=== PATIENT | male | born 1960 | race African-American/Black ===

== ENCOUNTER 2017-04-02 08:50 | Emergency (ER) | payer SELFPAY ==
[2017-04-02] MEDS ORDERED: Morphine 4 MG/ML VIAL ONE (09:15)
[2017-04-02] MEDS ORDERED: Ondansetron HCl/PF 4 MG/2 ML Vial ONE (09:15)
--- NOTE | 2017-04-02 09:45 | RAD ---
LUMBAR SPINE SERIES 3 VIEWS: HISTORY: Back pain. FINDINGS: Vertebral bodies are normal in height. Degenerative osteophytes are present. There is mild disk eric rowing at L4-5. Degenerative facet changes of the lower lumbar spine are seen. No acute injury. Th ere are vascular calcifications noted. IMPRESSION: Degenerative changes of the spine with some disk narrowing at L1-2 and L4-5. No definite acute proce ss. POS: [facility]
[2017-04-02 10:02] LABS: #Lymphocytes 2.4 thou/uL (1.20-3.40); #Monocytes 0.8 thou/uL (0.11-0.59); #Neutrophils 3.7 thou/uL (1.40-6.50); %Basophils 0.4 % (0.0-1.0); %Eosinophils 0.7 % (0.0-10.0); %Monocytes 11.7 % (0.0-10.0); Mean Platelet Volume 6.4 fL (7.4-10.4)
[2017-04-02 10:12] LABS: Bilirubin Negative (Negative); Blood, Urine Negative (Negative); Glucose, Urine (Dipstick) Negative (Negative); Ketone, Urine Negative (Negative); Nitrite Negative (Negative); Protein, Urine (Dipstick) 30 mg/dL (Neg-Trace); Urobilinogen 0.2 mg/dL (0.2-1.0)
[2017-04-02 10:15] LABS: Bacteria/HPF None Seen HPF (None Seen); Hyaline Casts/LPF 0-3 HYALINE CAST LPF (0-3 Hyaline); RBC/HPF 0-3 HPF (0-3); Squamous Epithelial None Seen HPF (0-3); WBC/HPF None Seen HPF (0-3)
[2017-04-02 10:20] LABS: ALT (SGPT) 88 U/L (8-55); AST (SGOT) 59 U/L (5-34); Alkaline Phosphatase 127 U/L (40-150); Anion Gap 12 mmol/L (10-20); BUN (Urea Nitrogen) 18 mg/dL (8.4-25.7); Bilirubin, Total 0.5 mg/dL (0.2-1.2); Calc. Creatinine Clearance 0 mL/min (70-130); Calcium 9.6 mg/dL (7.8-10.44); Carbon Dioxide 25 mmol/L (22-29); Chloride 101 mmol/L (98-107); Estimated GFR-MDRD 60; Globulin 4.4 g/dL (2.4-3.5); Protein, Total 8.2 g/dL (6.0-8.3)
== END 2017-04-02 11:00 | disposition home or self-care (01) ==
LOC: ERS 08:50
DX: M54.5 Low back pain (principal); I10 Essential (primary) hypertension; F17.210 Nicotine dependence, cigarettes, uncomplicated; Z79.899 Other long term (current) drug therapy
CPT/HCPCS: 72100; 80053; 81003; 81015; 85025; 96374; 96375; 99406; J2270; J2405

== ENCOUNTER 2017-05-07 10:42 | Emergency (ER) | payer MEDICAID, SELFPAY | END 2017-05-07 12:35 | disposition home or self-care (01) | LOC: ERS 10:42 | DX: R10.30 Lower abdominal pain, unspecified (principal); G89.29 Other chronic pain; I10 Essential (primary) hypertension; M19.90 Unspecified osteoarthritis, unspecified site; F17.210 Nicotine dependence, cigarettes, uncomplicated | CPT/HCPCS: 99283 ==

== ENCOUNTER 2017-06-25 14:23 | Inpatient (IN) | payer OTHER, SELFPAY ==
[~2017-06-25 14:23] MED LIST: ISOVUE-370 76%-LOCM 1 ML ONE
[2017-06-25] MEDS ORDERED: niCARdipine 20MG In NaCl 20 MG/200 ML BAG ONE (14:42)
[2017-06-25] MEDS ORDERED: Labetalol HCl 100 MG/20 ML VIAL ONE (15:01)
[2017-06-25 15:14] LABS: #Eosinphils 0.1 thou/uL (0.0-0.7); #Lymphocytes 1.6 thou/uL (1.20-3.40); #Monocytes 0.5 thou/uL (0.11-0.59); #Neutrophils 7.2 thou/uL (1.40-6.50); %Basophils 0.2 % (0.0-1.0); %Eosinophils 0.6 % (0.0-10.0); %Lymphocytes 17.2 % (21.0-51.0); %Monocytes 5.5 % (0.0-10.0); %Neutrophils 76.5 % (42.0-75.0); Hemoglobin 11.7 g/dL (14.0-18.0); Mean Corpuscular HGB CONC 33.8 g/dL (32.0-36.0); Mean Corpuscular Hemoglobin 33.4 pg (27.0-31.0); Mean Corpuscular Volume 98.9 fl (80.0-94.0); Mean Platelet Volume 6.3 fL (7.4-10.4); Platelet Count 529 thou/uL (130-400); RBC Distribution Width 12.1 % (11.5-14.5); Red Blood Cell (RBC) Count 3.49 mill/uL (4.70-6.10); White Blood Cell (WBC) Count 9.4 thou/uL (4.8-10.8)
[2017-06-25 15:21] LABS: PTT 33.8 SEC (22.9-36.1); Prothrombin Time 13.2 SEC (12.0-14.7)
[2017-06-25 15:34] LABS: ALT (SGPT) 36 U/L (8-55); AST (SGOT) 32 U/L (5-34); Albumin 3.5 g/dL (3.5-5.0); Alkaline Phosphatase 151 U/L (40-150); Anion Gap 11 mmol/L (10-20); BUN (Urea Nitrogen) 20 mg/dL (8.4-25.7); Bilirubin, Total 0.3 mg/dL (0.2-1.2); CK (CPK) 69 U/L (30-200); Calc. Creatinine Clearance 0 mL/min (70-130); Calcium 9.2 mg/dL (7.8-10.44); Carbon Dioxide 29 mmol/L (22-29); Chloride 98 mmol/L (98-107); Estimated GFR-MDRD 69; Globulin 3.9 g/dL (2.4-3.5); Glucose 108 mg/dL (70-105); Potassium 4.1 mmol/L (3.5-5.1); Protein, Total 7.4 g/dL (6.0-8.3); Sodium 134 mmol/L (136-145)
[2017-06-25 15:39] LABS: Troponin I 0.045 ng/mL (< 0.028)
--- NOTE | 2017-06-25 15:41 | CT ---
CT BRAIN WITHOUT CONTRAST: Date: 06/25/17 HISTORY: Left-sided weakness. FINDINGS: There are changes of cortical atrophy and chronic small vessel ischemic disease. The ventricular size is appropriate and the basilar cisterns are patent. No evidence of infarct, hemorrhage, midline shif t, or abnormal extra-axial fluid collections are seen. The bony calvarium is intact. The visualized p aranasal sinuses are well aerated. There is destructive change in the right mastoid extending into th e right occipital bone. IMPRESSION: 1. No CT evidence of acute intracranial process. 2. Destructive changes in the right petrous bone. This should be evaluated with a contrast enhanced MRI. Discussed over the telephone with ER physician, Dr. Cat, at 1435 hours. CODE CR. POS: [facility]
[2017-06-25] MEDS ORDERED: hydrALAZINE 20 MG/ML VIAL ONE (15:58)
[2017-06-25] MEDS ORDERED: Calcium Carbonate 500 MG ChewTAB PO PRN (16:49)
[2017-06-25] MEDS ORDERED: Bisacodyl 5 MG TAB PO PRN (16:49)
[2017-06-25] MEDS ORDERED: Mag-Al 1200 mg/1200 mg/30 ML UDCUP PO PRN (16:49)
[2017-06-25] MEDS ORDERED: Senokot 8.6 MG TAB PO PRN (16:49)
[2017-06-25] MEDS ORDERED: Ondansetron HCl/PF 4 MG/2 ML Vial IVP PRN (16:49)
[2017-06-25] MEDS ORDERED: Labetalol HCl 100 MG/20 ML VIAL SLOW IVP PRN (16:53)
--- NOTE | 2017-06-25 16:53 | CT ---
CTA HEAD WITH IV CONTRAST AND 3D POSTPROCESSING CTA NECK WITH IV CONTRAST AND 3D POSTPROCESSING CT PERFUSION OF THE BRAIN: 06/25/17 HISTORY: Left sided weakness. FINDINGS: Vascular calcifications are present. There is good flow in the vertebrobasilar and carotid artery sys tems on either side. No aneurysm formation, major branch occlusion or significant stenosis is seen. CT perfusion images have a normal appearance. There is destructive change in the right petrous bone. Spiculated nodules are noted in the upper lung ac. These measure 14 mm on the right and 11 mm on the left. Smaller nonspiculated nodules are al so seen in the left upper lobe measuring up to 5 mm. There is sclerotic changes in the right scapula also suspicious for metastasis. IMPRESSION: 1. No significant abnormalities are seen on the CTA or CT perfusion. 2. Pulmonary nodules and destructive changes in the right petrous bone are suspicious for metast atic disease. Findings are discussed over the telephone with ER physician, Dr. Radha Cat at 3:14 p.m. The study is interpreted in consultation with Dr. Cariln Lopez (neuroradiologist) who concurs. POS: [facility]
[2017-06-25] MEDS ORDERED: HYDROcodone/Acetaminophen 5/325 mg Tablet PO PRN (16:57)
--- NOTE | 2017-06-25 18:17 | MRI ---
MRI OF BRAIN WITHOUT CONTRAST 06/25/17 Multiplanar and multisequential imaging of brain obtained. HISTORY: Stroke symptoms. Assess for infarct. Correlation made to CT head with angio performed earlier today. FINDINGS: Mild cortical volume loss. Ventricles have normal size and position. Mild to moderate chronic ischemi c white matter changes seen in both cerebral hemispheres. There is no evidence of restricted diffusion. No evidence of acute infarct. No evidence of parenchyma l mass or edema. No hemorrhage identified. There is a large mass involving the right petrous ridge which was described on CT as a destructive le matt. This mass has significant soft tissue component on MRI. It measures approximately 3.6 cm AP dim ension x 3 cm width. There is associated mucosal edema in the right mastoid air cells. The lack of hi gh T1 signal argues against cholesterol granuloma. Metastatic lesion would be suspected as noted on t he CT. The intracranial internal carotid arteries and proximal cerebral arteries show flow voids. Dural veno us sinuses are patent. IMPRESSION: 1. No evidence of acute infarct. 2. Mild to moderate chronic ischemic white matter change. 3. A large mass which is destructive in nature as noted on recent CT involving the right petrous bone. There is associated edema in the right mastoid air cells. Metastatic lesion is suspected. POS: [facility]
[2017-06-25 18:54] LABS: Troponin I 0.068 ng/mL (< 0.028)
--- NOTE | 2017-06-25 20:07 | HP ---
CHIEF COMPLAINT: Not feeling well. HISTORY OF PRESENT ILLNESS: This is a 57-year-old gentleman with a past medical history significant for hypertension, who presents to the hospital due to not feeling well earlier today. The patient wa s in his normal state this morning. When around noon or so, he states that he was not feeling well. Around noon today, he states that he was feeling well. Therefore, he called his son to tell him lv t. Due to him not feeling well overall, EMS was called and patient was brought here for further eval uation and management. When he states that he was not feeling well, he states that he felt like he w as having some weakness of his extremities and did not know exactly why he was having this. Along wi th this he is having associated headache: When brought to the ER, he was found to have systolic bloo d pressures greater than 220. Code stroke was called as the patient was found to have facial droop w ith left upper and lower extremity weakness with slurred speech. The patient was given hydralazine a s well as labetalol in the ER, which brought his pressures down into the 170s to 180s. Also while in the ER, the patient's symptoms apparently had significantly improved to the point that had almost re solved. Only symptoms he was having per the ER doctor was facial droop and still some slurred speech , but did not exhibit any weakness. Therefore, no TPA was given in the ER. Currently, the patient s tates that he is feeling better. He states that his headache has improved. Denies having any weakne ss. Also denies any palpitations, chest pain, shortness of breath, nausea or vomiting. He states th at this is the first time he has ever had symptoms like this. PAST MEDICAL HISTORY: As stated, hypertension. SURGICAL HISTORY: The patient has no history. SOCIAL HISTORY: The patient states that he drinks beer daily, approximately 4-5 drinks beers a day a nd has smoked for the past 30+ years, half a pack per day. Denies any recreational drug use. FAMILY HISTORY: Significant for hypertension as well as cardiovascular disease. ALLERGIES: No known drug allergies. REVIEW OF SYSTEMS: A 14-point review of systems was negative other than what was mentioned in the HP I. PHYSICAL EXAMINATION: VITAL SIGNS: Blood pressure is 178/114, pulse is 104, respiratory rate was 18, temperature was 98.7. The patient is satting 99% oxygen on room air. GENERAL: The patient is in no apparent distress, resting comfortably in the bed. Alert, awake, and oriented x3. HEENT: Head: Normocephalic, atraumatic. Eyes: Pupils are round and reactive to light. Extraocula r muscles were intact. Conjunctivae was pink. Sclerae was nonicteric. Mouth: Oral mucosa is pink and moist. No erythematous was noted. NECK: Soft and supple. No JVD, carotid bruits or lymphadenopathy. CARDIOVASCULAR: Slightly tachycardic, regular rhythm. S1, S2 sounds are heard. No S3, no S4. RESPIRATORY: Clear lungs bilaterally. No added sounds. ABDOMEN: Bowel sounds, soft, nontender, nondistended. EXTREMITIES: Pulses were 2+ both dorsalis and radial pulse. No pitting edema could be appreciated. NEUROLOGIC: Cranial nerves II-XII are grossly intact. Could appreciate some slurred speech as well as right-sided facial droop. Cannot appreciate any weakness as his motor function appeared to be int act, 5/5 both upper and lower extremities with intact sensation and reflexes were 2/4. LABORATORY DATA: Sodium was 134, potassium 4.1, chloride is 98, BUN was 20, creatinine was 1.29, glu cose was 108. WBC was 9.4, hemoglobin 11.7, hematocrit was 34.5, platelet count was 529. CT of the head did not show any acute intracranial process and CTA of the head and neck showed no significant a bnormalities. ASSESSMENT: 1. Stroke-like symptoms possibly secondary to hypertensive emergency as the patient has systolic blo od pressure greater than 220. 2. Uncontrolled hypertension. 3. Excessive alcohol use. PLAN: We will admit the patient to the stroke unit. CTA of the head and neck has already been done, which was negative. We will order an MRI. We will start the patient on aspirin as well as Lipitor. We will check lipid profile. Check an echocardiogram. We will add hydralazine and labetalol, p.r. n. blood pressure medications, but we will allow for permissive hypertension for at least for the nex t 24 hours. We will have physical therapy as well as Speech Therapy to see the patient. We will cou nsel the patient on alcohol cessation. Pending finals, we will detect management. There are also me dications for pain management control if required at any time. We will start the patient on Lovenox [address] scan was negative.
[2017-06-25] MEDS: Atorvastatin Calcium 40 MG TAB PO SCH (20:13)
[2017-06-25 22:16] LABS: Troponin I 0.047 ng/mL (< 0.028)
[2017-06-26] MEDS: Acetaminophen 325 MG TAB PO PRN ×2 (03:54→19:59)
[2017-06-26 05:18] LABS: Anion Gap 14 mmol/L (10-20); BUN (Urea Nitrogen) 19 mg/dL (8.4-25.7); Calc. Creatinine Clearance 51 mL/min (70-130); Calcium 8.6 mg/dL (7.8-10.44); Carbon Dioxide 23 mmol/L (22-29); Cardiac Risk 3.1 (Less than 4.5); Chloride 101 mmol/L (98-107); Cholesterol 117 mg/dl (< 200 Desired); Estimated GFR-MDRD 67; Glucose 138 mg/dL (70-105); HDL Cholesterol 38 mg/dL (>60 Neg Risk); LDL Cholesterol, Calculated 64 mg/dL; Potassium 3.7 mmol/L (3.5-5.1); Sodium 134 mmol/L (136-145); Triglycerides 74 mg/dL (Less than 150)
[2017-06-26 05:31] LABS: Band 11 % (5-11); Lymphocytes 14 % (21-51); MDiff Complete? YES; Mean Corpuscular HGB CONC 33.6 g/dL (32.0-36.0); Mean Corpuscular Hemoglobin 32.9 pg (27.0-31.0); Mean Platelet Volume 6.5 fL (7.4-10.4); Monocytes 6 % (0-10); Neutrophil 69 % (42-75); PLT Morphology Comment Appears Increased; Platelet Count 484 thou/uL (130-400); RBC Distribution Width 12.2 % (11.5-14.5); Red Blood Cell (RBC) Count 3.35 mill/uL (4.70-6.10); White Blood Cell (WBC) Count 14.3 thou/uL (4.8-10.8)
[2017-06-26] MEDS ORDERED: ISOVUE-370 76%-LOCM 1 ML ONE (07:36)
[2017-06-26] MEDS: Enoxaparin Sodium 40 MG/0.4 ML SYRINGE SC SCH (08:58)
[2017-06-26] MEDS ORDERED: Aspirin 325 mg Enteric Coated Tablet PO SCH (09:00)
[2017-06-26] MEDS: Vancomycin HCl 1 GM in Premix Bag 1 BAG IVPB SCH ×2 (09:02→20:00)
--- NOTE | 2017-06-26 10:12 | PRG ---
DATE OF SERVICE: 06/26/2017 NEUROSURGERY PROGRESS NOTE SUBJECTIVE: I saw Mr. Self in his hospital room this morning. I reviewed imaging, history, and agr ee with the notes of Robin Claudio PA-C. Mr. Tyson Self came to our hospital yesterday with malaise and not feeling well. He complained of r ight facial weakness and some hemibody weakness. Imaging did not show any restricted diffusion in th e brain, but there was a lesion in the right mastoid portion of the temporal bone. Mr. Self says he continues to feel bad, he has a nonproductive cough and he is a smoker. When I examined Mr. Self, he has facial nerve weakness on the right side and it is House-Brackmann 4 -5/6. He has decreased hearing in the right ear, other lower cranial nerves are working. Mr. Self does not have pronator drift. He has preservation of rapid alternating motions of the fingers and to es. I did not get him out of bed, because he has been having a cardiac echo at the time of this eval uation. I reviewed imaging of the brain. There is a lesion that is destructive in the mastoid process of the temporal bone, it is outside the dura and it extends to the posterior infratemporal space and subocc ipital space. It does not extend intradurally nor is it compressive of the cerebellum. My plan for Mr. Self is that otolaryngologists visit with him. His right facial weakness is from th e mastoid and temporal bone destructive lesion. This could represent a metastasis from a lung cancer due to the smoking (there are lesions in the lung), could be a primary skull based tumor, could be i nfection. If Otolaryngology would like Neurosurgery involved in the case, we could be available to i nspect the dura, but mastoidectomy as a part of their area of expertise. In the meantime, I think he needs tumor staging with a CT chest, abdomen and pelvis and he needs the contrast MR image of the br ain with posterior fossa sequences. Neurosurgery team will be available for reconsultation should ou r involvement in the case be necessary.
--- NOTE | 2017-06-26 10:53 | PDOC.PN ---
- Subjective Encounter Start Date: 06/26/17 Encounter Start Time: 08:15 Subjective: no new complaints, has right facial nerve palsy x1 week -: left weakness is resolved per patient -: no discharge from ears, or hemoptysis, lost 20lbs in 2 months - Objective MAR Reviewed: Yes Vital Signs & Weight: Vital Signs (12 hours) Temp Pulse Resp BP Pulse Ox 06/26/17 08:00 100.1 F H 116 H 18 92 L 06/26/17 07:59 100.1 F H 116 H 18 167/89 H 92 L 06/26/17 03:58 102.2 F H 94 18 176/94 H 95 06/26/17 00:55 99.2 F 111 H 16 134/99 H 92 L Weight Weight 129 lb Result Diagrams: 06/26/17 04:25 06/26/17 04:25 Radiology Reviewed by me: Yes Phys Exam - Physical Examination HEENT: PERRLA, moist MMs left ptosis+, no mastoid tenderness Neck: no nodes, no JVD Respiratory: no wheezing, no rales rhonchi+ Cardiovascular: RRR, no significant murmur Gastrointestinal: soft, non-tender, positive bowel sounds Musculoskeletal: no edema, pulses present Neurological: moves all 4 limbs right 7th nr palsy, pt is left handed Psychiatric: normal affect, A&O x 3 Dx/Plan (1) metastases Status: Acute Comment: multiple to L.spine, adrenal, likely lungs and brain. Unknown prim ?lungs (2) Fever Code(s): R50.9 - FEVER, UNSPECIFIED Status: Acute Comment: likely due to cancer, cultures (3) COPD (chronic obstructive pulmonary disease) Status: Chronic Qualifiers: COPD type: chronic bronchitis (4) Tobacco abuse Code(s): Z72.0 - TOBACCO USE Status: Chronic (5) Alcohol abuse Code(s): F10.10 - ALCOHOL ABUSE, UNCOMPLICATED Status: Chronic (6) Weight loss Status: Acute (7) HTN (hypertension) Code(s): I10 - ESSENTIAL (PRIMARY) HYPERTENSION Status: Chronic Qualifiers: Hypertension type: essential hypertension Qualified Code(s): I10 - Essential (primary) hypertension (8) Sepsis Code(s): A41.9 - SEPSIS, UNSPECIFIED ORGANISM Status: Suspected - Plan cultures, empiric vanc and zosyn for now -: d/w Timoteo Rhoades Salazar. -: Unclear primary, likely lungs in view of areas of mets? -: D/w radiologist, will check with IR in am to see if Bx is feasib -: Poor prognosis in view of mets * . No aspirin, keep him npo if any procedures are planned. Gentle IV hydration Review of Systems - Medications/Allergies Allergies/Adverse Reactions: Allergies Allergy/AdvReac Type Severity Reaction Status Date / Time No Known Allergies Allergy Verified 06/25/17 19:45 Medications: Current Medications Acetaminophen (Tylenol) 650 mg PO Q6H PRN PRN Reason: Headache/Fever or Pain Last Admin: 06/26/17 03:54 Dose: 650 mg Hydrocodone Bitart/Acetaminophen ([place] 5/325) 1 tab PO Q4H PRN PRN Reason: Moderate Pain (4-6) Last Admin: 06/25/17 20:27 Dose: 1 tab Al Hydroxide/Mg Hydroxide (Maalox) 30 ml PO Q6H PRN PRN Reason: Heartburn or Indigestion Atorvastatin Calcium (Lipitor) 40 mg PO HS [facility] Last Admin: 06/25/17 20:13 Dose: 40 mg Bisacodyl (Dulcolax) 10 mg PO DAILYPRN PRN PRN Reason: Constipation Calcium Carbonate (Tums) 1,000 mg PO Q4H PRN PRN Reason: Heartburn or Indigestion Enoxaparin Sodium (Lovenox) 40 mg SC 0900 [facility] Last Admin: 06/26/17 08:58 Dose: Not Given Hydralazine HCl (Apresoline) 20 mg SLOW IVP Q2H PRN PRN Reason: elevated BP Piperacillin Sod/Tazobactam (Sod 4.5 gm/ Sodium Chloride) 100 mls @ 200 mls/hr IVPB Q6HR [facility] Vancomycin HCl 1 gm/ Device 200 mls @ 200 mls/hr IVPB Q12HR [facility] Last Admin: 06/26/17 09:02 Dose: 200 mls Sodium Chloride (Normal Saline 0.9%) 1,000 mls @ 100 mls/hr IV .Q10H [facility] Labetalol HCl (Normodyne) 20 mg SLOW IVP Q4H PRN PRN Reason: elevated bp Ondansetron HCl (Zofran) 4 mg IVP Q6H PRN PRN Reason: Nausea/Vomiting Senna (Senokot) 2 tab PO HSPRN PRN PRN Reason: Constipation Sodium Chloride (Flush - Normal Saline) 10 ml IVF Q12HR [facility] Last Admin: 06/26/17 08:59 Dose: Not Given Sodium Chloride (Flush - Normal Saline) 10 ml IVF PRN PRN PRN Reason: Saline Flush
[2017-06-26] MEDS: Sodium Chloride 0.9% 1,000 ML IV SCH ×2 (11:11→20:00)
[2017-06-26] MEDS ORDERED: Acetaminophen 1,000 MG in Premix Bag 1 BAG IVPB SCH (11:15)
[2017-06-26] MEDS ORDERED: Morphine 5 MG/ML SYRINGE SLOW IVP PRN (11:20)
--- NOTE | 2017-06-26 11:37 | CT ---
CT CHEST WITH IV CONTRAST CT ABDOMEN WITH IV CONTRAST CT PELVIS WITH IV CONTRAST: Date: 06/26/17 HISTORY: Right temporal bone mass and pulmonary nodules on exams from yesterday. Exam requested to evaluate fo r primary. FINDINGS: No mediastinal, hilar, or axillary mass or lymphadenopathy is seen. Mediastinal and left hilar lymph nodes measure up to 8.0 mm. No pleural or pericardial effusions are seen. There are patchy infiltrates in the posterior aspect of the lower lobes bilaterally. A couple of spiculated nodules are seen in the upper lobes measuring 15 .0 mm on the right and 1.0 cm on the left. Small, 5.0 mm, nodule is also seen in the left upper lobe. The liver, spleen, pancreas, and left kidney are normal. There is a tiny nonobstructing right renal c alculus. No calcified gallstones are seen. Bilateral adrenal nodules are present measuring 1.5 cm on the right and 2.0 cm on the left. No free air, free fluid, or lymphadenopathy is seen in the abdomen or pelvis. Vascular calcifications are present without evidence of aneurysmal dilatation of the abdominal aorta. Absence of oral contrast reduces the sensitivity of exam. There is prominence of the wall of the stom ach which can be due to incomplete distention or wall thickening/mass. Endoscopic evaluation would be helpful. There is sclerosis in the right scapula. There is a lytic lesion in the left scapula with associated fracture involving the inferior aspect of the body (likely pathologic fracture). There are lytic lesions involving the L1, L2, and L3 vertebra, sacrum, and right iliac bone. There is an associated compression fracture/pathologic fracture at L2 level with soft tissue extension into t he intraspinal canal causing severe central canal stenosis. IMPRESSION: 1. Osseous, adrenal, and pulmonary metastasis. 2. Severe central canal stenosis at L2. 3. Nonobstructing right renal calculus. 4. Bilateral lung infiltrates. The possibility of infection should be considered. A course of antibi otics should be administered prior to evaluation with PET scan (if PET scanning is being considered). 5. Incomplete distension vs gastric wall thickening. Consider endoscopy. Discussed over the telephone with Dr. Clark at 1030 hours. CODE CR. POS: [facility]
--- NOTE | 2017-06-26 12:06 | CON ---
DATE OF SERVICE: 06/26/2017 CONSULTING PHYSICIAN: Sloane Clark M.D. REASON FOR CONSULTATION: Possibility of biopsying some small lung lesions. HISTORY OF PRESENT ILLNESS: The patient is a 57-year-old male who is able to give his own history wi [facility] limitations, also I have reviewed chart notes and I have discussed with Dr. Clark. He pr esented to the hospital yesterday stating he did not feel well. He has had a constant headache for a bout 3 weeks. He has had difficulty hearing on the right. It was initially felt he was having a str dianna. He was also found to be severely hypertensive. Further workup has demonstrated an abnormal MRI of the head with a 3.6 x 3 cm mass on the right petrous ridge in the temporal area. He also had muc osal edema in the right mastoid air cells. Further workup with a CT of the chest demonstrates a smal l pulmonary nodule in the left upper lobe and nondescript spiculated density in the right upper lobe, has very small left hilar lymph node, has a destructive lesion which looks to be an L-spine and has bilateral adrenal findings. The patient has no previous history of cancer that he knows of. He has had no hemoptysis. He has had significant weight loss. He denies any TB exposure. PAST MEDICAL HISTORY: Hypertension. PAST SURGICAL HISTORY: None. SOCIAL HISTORY: He has been a 4-5 beer per day drinker. He has smoked about half pack a day over e last 30 years. He formerly worked at the [employer] in [place] [facility]. Does not use any illicit drugs. He is currently disabled. FAMILY MEDICAL HISTORY: Remarkable for hypertension and cardiovascular disease. ALLERGIES: None. REVIEW OF SYSTEMS: Remarkable for weight loss, weakness, otherwise 12-point review of systems is neg ative. MEDICATIONS PRIOR TO ADMISSION: None. CURRENT INPATIENT MEDICATIONS: Acetaminophen, Maalox, Lipitor, Lovenox, Apresoline, Cope, morphine, Zofran, and vancomycin. PHYSICAL EXAMINATION: VITAL SIGNS: Temperature 102.7, pulse 118, respirations 20, O2 sat 93%, blood pressure 186/101. GENERAL: He is awake and alert and in no distress. HEENT: Pupils reactive. Sclerae are anicteric. Oropharynx clear. NECK: No JVD. LUNGS: He has no crackles, wheezing or rhonchi noted. CARDIOVASCULAR: S1, S2 regular, without murmur. ABDOMEN: Soft and nontender. EXTREMITIES: No clubbing, cyanosis, or edema. LABORATORY DATA: White blood cell count 14.3, hematocrit 32.9, platelet count 484. INR 1.0. Sodium 134, potassium 3.7, chloride 101, CO2 is 23, BUN 19, creatinine 1.3, glucose 138. I reviewed his CT of the chest personally. ASSESSMENT: 1. Right intracranial bone metastasis. 2. Lumbar spine metastasis. 3. Scattered pulmonary nodules - do not know if this is primary site of tumor or not. This nodules are very small and will be almost impossible to biopsy by CT needle and I do not think are amenable t o bronchoscopy. RECOMMENDATIONS: The most logical area to biopsy would be the L-spine in my opinion. This can be do ne by Interventional Radiology. If no other side is found, I would keep in mind lung findings could be caused by endocarditis and would advocate performing an echocardiogram. The fever is not explaina ble from a malignancy standpoint at this time.
[2017-06-26] MEDS: Piperacillin/Tazobactam 4.5 GM in Sodium Chloride 0.9% 100 ML IVPB SCH ×2 (12:31→17:28)
--- NOTE | 2017-06-26 12:36 | CON ---
DATE OF CONSULTATION: 06/26/2017 HISTORY OF PRESENT ILLNESS: Mr. Self is a 57-year-old male who presents with generalized weakness a nd fatigue and not feeling well. His past medical history is significant for hypertension, who prese nts to the hospital yesterday. He has an extensive family history of cancer and for the past month, he has been losing significant amount of weight up to 20 pounds without trying. He states he is havi ng some weakness in the extremities especially in the lower extremities. He has had associated heada lisa. When he was brought to the hospital, his systolic blood pressure was greater than 220. The pat priscilla was found to have left facial droop and left-sided weakness on the upper and lower extremities i n the ER, so a stroke code was called. The patient did not receive TPA in the hospital and hours lat er, left facial droop gradually resolved. Patient states he is currently feeling better, but he stil l has his headache. He denies any palpitations, chest pain, shortness of breath, nausea, vomiting. He has a CT of the brain that was completed upon admission that showed destructive changes in the rig ht petrous bone. This was later followed up by a brain MRI to evaluate further that showed a large m ass with destructive in nature noted on the recent CT involving the right petrous bone with associate d edema in the right mastoid cells, metastatic lesion is suspected. The patient is a current smoker. Neurosurgery was consulted for these findings on the MRI and CT scan of the large mass in the christina us region on the right. PAST MEDICAL HISTORY: Hypertension. PAST SURGICAL HISTORY: No history. SOCIAL HISTORY: Patient drinks beer daily, approximately 4-5 drink beers a day. He has smoked for t he past 30 years, half pack a day and denies any recreational drug use. FAMILY HISTORY: The patient is significant for hypertension as well cardiovascular disease and malig nancies. ALLERGIES: No known drug allergies. REVIEW OF SYSTEMS: A 14-point review of systems was completed, otherwise negative unless stated in t he above HPI. PHYSICAL EXAMINATION: VITAL SIGNS: Currently, temperature 102.7, pulse is 118, respirations of 20, O2 sats 93% on nasal ca nnula 2 liters and blood pressure is currently 186/101. CONSTITUTIONAL: The patient is alert and oriented x4. He is able to answer my questions appropriate ly, appears to be in no acute distress. HEENT: Normocephalic, atraumatic. Hearing intact. Moist mucous membranes. Trachea is midline. He has no tenderness over the right-sided mastoid region on palpation. NECK: Soft and supple, no JVD, no carotid bruits. CARDIOVASCULAR: The patient is slightly tachycardic, regular rate and rhythm, normal S1, S2 heart so unds. No distal cyanosis or clubbing noted. Intact pedal pulses bilaterally. RESPIRATORY: The patient has bilateral symmetric chest rise. Appears to have no shortness of breath . EXTREMITIES: The patient has +2 dorsal pedis and radial pulses. No pitting edema could be appreciat ed. NEUROLOGIC: Cranial nerves II through XII grossly intact. Speech is fluent. He answers my question s appropriately. He seems to have good strength in his upper extremities bilaterally and no focal mo tor or sensory deficits. In the lower extremities, intact to sensation and reflexes were 2/4. LABORATORY DATA: Shows white blood cell count of 14.3, hemoglobin 11, hematocrit is 32.9, platelet c ount is 484, % neutrophils bands are 11. On chemistry exam, his sodium is 134, creatinine is 1.33, g lucose is 138. His troponin 1 of 0.047. His coagulation studies are normal. ASSESSMENT: Status post stroke-like symptoms secondary to hypertensive emergency with systolic blood pressure greater than 220. 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 He has uncontrolled hypertension and excessive alcohol use. PLAN: From neurosurgical standpoint, need to consult an paintless dent repair technician to visit with him for his t emporal bone destructive lesion. CT of chest, abdomen, and pelvis is currently being completed and t his possibly could be a metastatic lesion from lung cancer from smoking. If otolaryngology would lik e Neurosurgery involved in the case, please feel free to reconsult us. CT chest, abdomen, and pelvis will be used for staging purposes.
--- NOTE | 2017-06-26 16:40 | ADD-PRG ---
ADDENDUM I have reviewed CT imaging of the chest, abdomen, and pelvis on Mr. Tyson Self. There are spiculate d lesions in the lung ac. There are lytic lesions at L1, L2, L3 and the sacrum. In the end, I believe most of the lesions in the body are likely to be a metastatic, I worry about colton ng cancer in this smoker. I will defer to ENT for management of the mastoid lesion.
[2017-06-26] MEDS: Metoprolol Tartrate 25 MG TAB PO SCH (19:58)
[2017-06-26] MEDS: Atorvastatin Calcium 40 MG TAB PO SCH (19:59)
--- NOTE | 2017-06-26 20:24 | CON ---
DATE OF CONSULTATION: 06/26/2017 REASON FOR CONSULTATION: Indeterminate troponins. HISTORY OF PRESENT ILLNESS: Mr. Self is a 57-year-old gentleman who came to the hospital with feeli ngs of "not feeling well." It was noted that he had some neurologic deficits and underwent evaluatio n and ultimately has been found to have what appears to be likely to be a malignancy and an MRI of th e right petrous region temporal area with probable malignancy in multiple other areas is outlined in the chart. I have been consulted because the troponin level is indeterminate. He has no chest pain or pressure. PAST MEDICAL HISTORY: 1. Hypertension, he was very hypertensive when he came. 2. No previous cardiac history. SOCIAL HISTORY: Four to five beers per day. Smoked about a half pack of cigarettes over the last 30 years. He has been losing weight. He is disabled. ALLERGIES: None. REVIEW OF SYSTEMS: Positive for weight loss, weakness, and otherwise negative. MEDICATIONS: None prior to admission. PHYSICAL EXAMINATION: GENERAL: He is a thin appearing gentleman. He did have a fever of 102.7 with a pulse 118, now his p ulse is just over 100, still sinus tachycardia. HEENT: Eyes, sclerae nonicteric. Mouth mucous membranes moist. NECK: Supple, no lymphadenopathy. LUNGS: Clear, no wheezing, rales or rhonchi. CARDIAC: Normal S1, normal S2, but he is tachycardic. No murmur, rub or gallop. ABDOMEN: Soft, nontender. EXTREMITIES: No clubbing or cyanosis. No edema. LABORATORY AND X-RAY FINDINGS: Evaluations reveal what appears to be lumbar spinal metastasis, right intracranial bone metastasis and scattered pulmonary nodules. Echocardiogram revealed normal left v entricular function with normal valves. Troponin level of 0.068, peak. EKG sinus tachycardia, proba ble LVH repolarization, some mild nonspecific changes. ASSESSMENT: 1. Evaluation is being undertaken for what appears to be metastatic cancer, it is also noted that so me of these findings could be related to infection and this is being investigated. 2. Indeterminate troponin, probably demand ischemia. 3. Long history of hypertension. PLAN: Add low dose beta-gregor. No other recommendations at this time. We will repeat troponin on e further time to see if there is any trend, but it did not seem to be peak and trough type of a dannie zach.
[2017-06-27] MEDS: Piperacillin/Tazobactam 4.5 GM in Sodium Chloride 0.9% 100 ML IVPB SCH ×5 (00:25→23:53)
[2017-06-27] MEDS: Sodium Chloride 0.9% 1,000 ML IV SCH ×3 (01:17→16:30)
--- NOTE | 2017-06-27 08:04 | PRG ---
DATE OF SERVICE: 06/27/2017 I saw Mr. Self in his hospital room this morning. He is reasonably stable. He wants to get his tejas n under control and have a diagnosis for his feeling ill for the last number of weeks to months. I reviewed imaging and I am concerned for Mr. Self. Mr. Self had a T-max of 100.9 degrees Fahrenhe it yesterday. His heart rate has been in the 90s to 100s. When I examined Mr. Self, he still has a facial weakness and decreased hearing on the right side. H is tongue protrudes in the midline and moves well to both sides. His neck turn and shoulder shrug ar e strong. He is not having any swallowing difficulty. I think his lower cranial nerves other than 7 and 8 on the right are working well. I reviewed all imaging again. Mr. Self has multiple lesions throughout the body. There is some spi culated lesions in the lung ac. There is a lesion at L1, L2, L3 segments of the lumbar spine. T here is a lesion in the sacrum. These look like they are lytic lesions. There is a lesion at the sk ull base. Mr. Self's skull base lesion will be treated with radiation once we have a diagnosis. The Oncology teams need to be consulted including Radiation Oncology and Medical Oncology. We need to find an acc essible lesion to biopsy to get a tissue diagnosis and to start treatment. I will leave it to the ms dical team to determine whether the fever and heart rate related to infection or cancer. I have spoken with our colleagues in Otolaryngology. If our colleagues in Radiology cannot make a tissue diagnosis with a CT guided biopsy, then we could consider taking him to the [facility] ourselves, putting a needle in one of the lumbosacral vertebrae a nd obtaining tissue for diagnosis. If you need us to consider this from the Neurosurgery perspective , please call. I do not plan any surgery for the skull base lesion, as I think it requires radiation instead.
[2017-06-27 09:06] LABS: Vancomycin, Trough 13.2 ug/mL
[2017-06-27] MEDS: Vancomycin HCl 1 GM in Premix Bag 1 BAG IVPB SCH ×2 (09:50→20:52)
[2017-06-27] MEDS: Metoprolol Tartrate 25 MG TAB PO SCH ×2 (09:50→20:59)
[2017-06-27] MEDS: Acetaminophen 325 MG TAB PO PRN ×2 (09:50→16:42)
[2017-06-27] MEDS: Enoxaparin Sodium 40 MG/0.4 ML SYRINGE SC SCH (09:50)
--- NOTE | 2017-06-27 09:52 | PRG ---
DATE OF SERVICE: 06/27/2017 SUBJECTIVE: Patient seems to be doing okay except for headache. PHYSICAL EXAMINATION: VITAL SIGNS: Temperature is 99.0 with a T-max of 100.9, pulse 112, respirations 16, O2 sat 92% on 2 liters. HEENT: Unremarkable. NECK: No JVD. CHEST: Clear. CARDIAC: S1 and S2 regular. ABDOMEN: Soft. EXTREMITIES: No edema. 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 RECOMMENDATIONS: I recommend CT needle biopsy of the L spine (00:40) he is continuing antibiot ics. We are awaiting an ENT evaluation (00:44).
--- NOTE | 2017-06-27 10:19 | PDOC.PN ---
- Subjective Encounter Start Date: 06/27/17 Encounter Start Time: 10:00 Subjective: no sob, is feeling better -: no new weakness - Objective MAR Reviewed: Yes Vital Signs & Weight: Vital Signs (12 hours) Temp Pulse Resp BP Pulse Ox 06/27/17 08:00 100.9 F H 110 H 18 162/93 H 91 L 06/27/17 07:36 99 F 112 H 16 06/27/17 06:37 112 H 16 92 L 06/27/17 03:36 99.0 F 98 20 162/87 H 92 L 06/27/17 00:30 101 H 12 06/26/17 23:47 98.6 F 91 16 145/90 H 92 L Weight Weight 140 lb 9.6 oz I&O: 06/26/17 06/27/17 06/28/17 06:59 06:59 06:59 Intake Total 1625 Output Total 1000 Balance 625 Result Diagrams: 06/26/17 04:25 06/26/17 04:25 Phys Exam - Physical Examination HEENT: PERRLA, moist MMs Neck: no JVD, supple Respiratory: no wheezing, no rales rhonchi+ Cardiovascular: RRR, no significant murmur Gastrointestinal: soft, non-tender, positive bowel sounds Musculoskeletal: no edema, pulses present Neurological: moves all 4 limbs 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 Unknown prim ?lungs (2) Fever Code(s): R50.9 - FEVER, UNSPECIFIED Status: Acute Comment: likely due to cancer, cultures (3) COPD (chronic obstructive pulmonary disease) Status: Chronic Qualifiers: COPD type: chronic bronchitis (4) Tobacco abuse Code(s): Z72.0 - TOBACCO USE Status: Chronic (5) Alcohol abuse Code(s): F10.10 - ALCOHOL ABUSE, UNCOMPLICATED Status: Chronic (6) Weight loss Status: Acute (7) HTN (hypertension) Code(s): I10 - ESSENTIAL (PRIMARY) HYPERTENSION Status: Chronic Qualifiers: Hypertension type: essential hypertension Qualified Code(s): I10 - Essential (primary) hypertension (8) Sepsis Code(s): A41.9 - SEPSIS, UNSPECIFIED ORGANISM Status: Suspected - Plan hopson cultures prelim report is -ve -: d/w IR for biopsy of scapular/L2/pelvic met per ease of access -: has multiple mets, unknown primary yet -: d/w 2 sons and patient yesterday evening about current results and plan -: will dc antibiotics in am. Continue nebs and lopressor for now * . May tx to oncology floor. Review of Systems - Medications/Allergies Allergies/Adverse Reactions: Allergies Allergy/AdvReac Type Severity Reaction Status Date / Time No Known Allergies Allergy Verified 06/25/17 19:45 Medications: Current Medications Acetaminophen (Tylenol) 650 mg PO Q6H PRN PRN Reason: Headache/Fever or Pain Last Admin: 06/27/17 09:50 Dose: 650 mg Hydrocodone Bitart/Acetaminophen ([place] 5/325) 1 tab PO Q4H PRN PRN Reason: Moderate Pain (4-6) Last Admin: 06/25/17 20:27 Dose: 1 tab Al Hydroxide/Mg Hydroxide (Maalox) 30 ml PO Q6H PRN PRN Reason: Heartburn or Indigestion Albuterol/Ipratropium (Duoneb) 3 ml NEB [id number] JUANITA Last Admin: 06/27/17 06:37 Dose: 3 ml Atorvastatin Calcium (Lipitor) 40 mg PO HS JUANITA Last Admin: 06/26/17 19:59 Dose: 40 mg Bisacodyl (Dulcolax) 10 mg PO DAILYPRN PRN PRN Reason: Constipation Calcium Carbonate (Tums) 1,000 mg PO Q4H PRN PRN Reason: Heartburn or Indigestion Enoxaparin Sodium (Lovenox) 40 mg SC 0900 [facility] Last Admin: 06/27/17 09:50 Dose: 40 mg Hydralazine HCl (Apresoline) 20 mg SLOW IVP Q2H PRN PRN Reason: elevated BP Piperacillin Sod/Tazobactam (Sod 4.5 gm/ Sodium Chloride) 100 mls @ 200 mls/hr IVPB Q6HR JUANITA Last Admin: 06/27/17 05:45 Dose: 100 mls Vancomycin HCl 1 gm/ Device 200 mls @ 200 mls/hr IVPB Q12HR JUANITA Last Admin: 06/27/17 09:50 Dose: 200 mls Sodium Chloride (Normal Saline 0.9%) 1,000 mls @ 100 mls/hr IV .Q10H [facility] Last Admin: 06/27/17 05:12 Dose: Not Given Labetalol HCl (Normodyne) 20 mg SLOW IVP Q4H PRN PRN Reason: elevated bp Metoprolol Tartrate (Lopressor) 12.5 mg PO BID [facility] Last Admin: 06/27/17 09:50 Dose: 12.5 mg Morphine Sulfate (Morphine) 2 mg SLOW IVP Q2H PRN PRN Reason: Pain Last Admin: 06/26/17 12:32 Dose: 2 mg Ondansetron HCl (Zofran) 4 mg IVP Q6H PRN PRN Reason: Nausea/Vomiting Senna (Senokot) 2 tab PO HSPRN PRN PRN Reason: Constipation Sodium Chloride (Flush - Normal Saline) 10 ml IVF Q12HR [facility] Last Admin: 06/27/17 09:50 Dose: 10 ml Sodium Chloride (Flush - Normal Saline) 10 ml IVF PRN PRN PRN Reason: Saline Flush
[2017-06-27] MEDS ORDERED: Midazolam HCl 2 mg/2 ml Vial ONE (12:50)
[2017-06-27] MEDS ORDERED: Sodium Bicarbonate 2.4 MEQ/5 ML ONE (12:51)
[2017-06-27] MEDS ORDERED: Fentanyl 100 MCG/2 ML VIAL ONE (12:51)
--- NOTE | 2017-06-27 13:50 | CT ---
CTA HEAD WITH IV CONTRAST AND 3D POSTPROCESSING CTA NECK WITH IV CONTRAST AND 3D POSTPROCESSING CT PERFUSION OF THE BRAIN: 06/25/17 HISTORY: Left sided weakness. FINDINGS: Vascular calcifications are present. There is good flow in the vertebrobasilar and carotid artery sys tems on either side. No aneurysm formation, major branch occlusion or significant stenosis is seen. CT perfusion images have a normal appearance. There is destructive change in the right petrous bone. Spiculated nodules are noted in the upper lung ac. These measure 14 mm on the right and 11 mm on the left. Smaller nonspiculated nodules are al so seen in the left upper lobe measuring up to 5 mm. There is sclerotic changes in the right scapula also suspicious for metastasis. IMPRESSION: 1.No significant abnormalities are seen on the CTA or CT perfusion. 2. Pulmonary nodules and destructive changes in the right petrous bone are suspicious for metast atic disease. Findings are discussed over the telephone with ER physician, Dr. Radha Cat at 3:14 p.m. The study is interpreted in consultation with Dr. Carlin Lopez (neuroradiologist) who concurs.
[2017-06-27] MEDS: hydrALAZINE 20 MG/ML VIAL SLOW IVP PRN (14:57)
--- NOTE | 2017-06-27 16:16 | CT ---
CT GUIDED PERCUTANEOUS BIOPSY RIGHT ILIAC LYTIC BONE LESION: Date: 06-27-17 History: Patient with osseous metastatic disease. Biopsy was requested. Unknown primary. Technique: The procedure including risks and complications were explained to the patient. The patient was placed on the CT scan table in the prone position. Limited noncontrasted CT scan was obtained th rough the right iliac bone with grid localizer in place. An area was marked and meticulously prep and draped in the usual sterile fashion. Skin and subcutaneous tissues were infiltrated with buffered 1% Lidocaine for local anesthesia. Small skin incision was made. A 17 guide needle was advanced followed by three axial noncontrasted CT images. The needle was advanc ed and position was again confirmed with noncontrasted axial CT images. A total of four 18 gauge core needle biopsy specimens were obtained utilizing co-axial technique. Needle was removed and hemostasi s was achieved with direct pressure. Follow up imaging demonstrates no hematoma at site of biopsy or adjacent fluid. Dry sterile dressing was placed at puncture site. Patient tolerated the procedure well and without im mediate complication. Patient was transported to his hospital room in stable condition. IMPRESSION: Technically successful CT guided percutaneous biopsy of a lytic obstructive lesion in the right iliac bone. Pathologist was available for evaluation of the initial specimens. POS: ALVARO
[2017-06-27] MEDS: Atorvastatin Calcium 40 MG TAB PO SCH (20:58)
[2017-06-28] MEDS: Sodium Chloride 0.9% 1,000 ML IV SCH ×2 (04:41→17:05)
[2017-06-28] MEDS: Piperacillin/Tazobactam 4.5 GM in Sodium Chloride 0.9% 100 ML IVPB SCH (05:28)
[2017-06-28 05:55] LABS: Troponin I 0.045 ng/mL (< 0.028)
--- NOTE | 2017-06-28 07:41 | PRG ---
DATE OF SERVICE: 06/28/2016 I am seeing Mr. Self in his hospital room this morning. He has been moved to the oncology floor. Y morning there was a T-max of 100.9 degrees Fahrenheit, otherwise he has been relatively afeb rile. Mr. Self had an iliac bone biopsy and we are awaiting the results of that. Mr. Self is rest ing comfortably, he is getting a breathing treatment in his bed. He still has facial weakness and so me hearing loss on the right side. I do not find any new motor sensory deficits. Mr. Self stood an d took a few steps to bedside commode this morning. My plan for Mr. Self's skull base lesion and spinal lesions needs radiation rather than surgical int ervention. We can put him in an LSO brace to give him an extra stability given the multiplicity of t he lumbar spine bony lesions, it might even help with pain control. We can order of this on the lumb osacral orthosis to be applied. I think he will do well with physical therapy. He needs to mobilize to avoid DVT. If he requires further neurosurgical evaluation during this hospital stay, please do not hesitate to call back. Otherwise, I will see him in our clinic.
[2017-06-28 08:22] LABS: Vancomycin, Trough 18.5 ug/mL
[2017-06-28] MEDS: Metoprolol Tartrate 25 MG TAB PO SCH ×2 (08:22→20:32)
[2017-06-28] MEDS: Enoxaparin Sodium 40 MG/0.4 ML SYRINGE SC SCH (08:24)
--- NOTE | 2017-06-28 09:41 | CON ---
DATE OF CONSULTATION: 06/28/2017 REASON FOR CONSULTATION: Mr. Self is a 57-year-old gentleman who appears to have a stage IV metasta tic malignancy. I was asked to see him for consideration of radiation therapy for his bone metastasi s. HISTORY OF PRESENT ILLNESS: Mr. Self was admitted to the hospital a couple of days ago because of " feeling bad." He did not feel well and was having pain all over, but especially in the back and some headaches. He could hardly get out of bed because the pain was worse with moving around. He was br ought to the emergency room by ambulance and apparently was found to have blood pressures in the 220 range. There was concern for hypertensive urgency and possible stroke as he was noted to have a righ t facial droop. He then underwent multiple tests including a CT scan of the head, and a CT angiogram . This showed no evidence of stroke. However, he had a large lytic lesion involving the right christina us bone. MRI of the brain confirmed the large lytic lesion involving the right petrous bone. He the n had a CT scan of the chest, abdomen, and pelvis. This showed multiple pulmonary nodules. There we re also multiple areas of lytic lesion in the bone including a fairly significant lesion in the L2 ve rtebral body which was causing spinal canal narrowing. He was seen by Neurosurgery. Yesterday, he u nderwent a CT guided biopsy and results are currently pending. I have been asked to see him for cons ideration of radiation therapy. His pain is better, but he is still hurting. This does limit his ambulation, but he is able to walk. He has no difficulty with urination. He has had some constipation, although he did have a bowel mo vement this morning. He has no fever. He denies any chest pain. His main area of pain is in his lo wer back and also occasionally with headaches. He has had some trouble with swallowing and feeling l zeke that he is choking and coughing when he eats. Apparently, he was seen by Speech Therapy and was felt to be aspirating. They are currently working with him about this. He denies any leg numbness. He voices no other complaints. PAST MEDICAL HISTORY: 1. Hypertension. 2. Osteoarthritis. 3. He has no other medical or surgical problems. MEDICATIONS: Albuterol nebulizers, atorvastatin, Dulcolax, Lovenox, hydralazine, Celestine, labetalol, m etoprolol, piperacillin/tazobactam, and vancomycin. ALLERGIES: No known medical allergies. SOCIAL HISTORY: The patient lives by himself in [place], [place]. He is . He has 2 sons who live in [place]. He was drinking approximately 4-5 beers per day at admission. He also smoked about a half pack per day and has done so for more than 30 years. He has no other drug use. He has not s moked since admission. FAMILY HISTORY: His mother from some type of cancer at age 81. His father at age 83 from diabetes, coronary artery disease, COPD. His maternal grandmother had cancer, the type of which is u nknown to him also. There is no other family history of malignancy. REVIEW OF SYSTEMS: Twelve system review of systems is otherwise negative other than what was discuss ed in [facility]. PHYSICAL EXAMINATION: VITAL SIGNS: Height 5 feet 6 inches, weight 140 pounds, blood pressure is 166/80, pulse is 97, respi rations are 18, temperature is 97.7, O2 saturation is 92% on 2 liters O2. GENERAL: He is alert and oriented and in no apparent distress. He is ill in appearance. Karnofsky performance status is 60%. He does sound as if he has some hoarseness. EYES: Pupils equal, round, and reactive to light. Extraocular movements are intact. ENT: Oral cavity and oropharynx normal without lesion or erythema. Palate elevates symmetrically. Gingiva is intact. NECK: Supple, without cervical or supraclavicular adenopathy. No thyromegaly. Larynx is midline. LUNGS: Breathing is nonlabored. Clear to auscultation and percussion. HEART: Regular rate and rhythm without murmur. No lower extremity edema. BACK: Reveals tenderness over the upper lumbar spine region. LYMPHATIC: No axillary or inguinal adenopathy. ABDOMEN: Bowel sounds present. Soft, nontender, nondistended, without mass or hepatosplenomegaly. Liver percussed to normal size. SKIN: Without rash or purpura. NEUROLOGIC: Cranial nerves II-XII reveal a right-sided facial nerve weakness. Otherwise, cranial ne rves are intact. Motor strength is 5/5 in both upper and lower extremities in all muscle groups test ed. Gait was not tested. LABORATORY DATA: Biopsy is currently pending. CBC on 06/26/2017 revealed a white blood count of 14, 300 with hemoglobin of 11.0, hematocrit of 32.9, platelet count of 484,000. Chemistry group revealed creatinine of 1.33 with a GFR of 67. Glucose was 138. RADIOLOGIC: CT scan of the head, MRI of the head, CT angiogram, and CT of the chest, abdomen, and pe lvis were all personally reviewed. Again, he has multiple lytic lesions in the bone, most consistent with metastasis. He has a large lesion involving the right petrous bone. He also has a large lytic lesion at L2 which was causing spinal canal narrowing. He has multiple lung nodules as well as some patchy infiltrates in the lower lobe bilaterally. He has bilateral adrenal lesions. ASSESSMENT: Mr. Self is a 57-year-old gentleman with a likely metastatic malignancy. He has no obv ious primary at this time based on his CT scans. He appears to have some cranial nerve dysfunction w ith some swallowing and possible aspiration which may be related to the lesion in the right petrous b one affecting his cranial nerves. He is also having back pain, but has no evidence of spinal cord co mpression. PLAN: I had a long discussion with Mr. Self regarding his probable diagnosis, and prognosis. I exp lained that this does appear to be metastatic malignancy. I explained that likely his disease is not going to be curable. We will await the biopsies to determine the specific cancer type as this may i mpact our treatment. At present, there does not appear to be any obvious primary. His biggest compl aint today is pain. He is also having some cranial nerve dysfunction from his bone metastasis at the right base of skull. He may benefit from a course of palliative radiation therapy. This could de jesus ge depending on the biopsy results, but likely he is going to need radiation to these two areas. The logistics of radiation as well as the benefits and risks of treatment were discussed in depth. Side effects would include but not be limited to skin reaction, fatigue, lower blood counts, headache, na usea, vomiting, and small risk of damage to his brain or intestines or other structures to receive ra diation therapy. His social situation is quite poor and that he lives by himself. He does not appear to have any ro sportation to come for treatment. Social work will need to evaluate this for long-term discharge [facility]. I am not sure there are many transportation options to bring him from [place]. Hopefully, hi s family can help provide transportation once he goes to an outpatient. I am concerned about possibl e aspiration. Apparently, he has been seen by Speech Therapy and did have some aspiration. This may actually explain his fever as he may have some aspiration pneumonia type symptoms. Consideration ne eds to be given to a PEG tube if he is aspirating. Hopefully, the radiation will make his cranial ne rve dysfunction improved, but this may take some time. The radiation should help in his pain control . His pain control does need to be maximized from a medication standpoint to help facilitate outpati ent treatment. Medical Oncology is also going to see the patient. We will await the biopsy results and make a final determination on how to proceed, but likely he will need some radiation therapy in t he near future. Thank you for this interesting consultation.
--- NOTE | 2017-06-28 11:06 | PDOC.PN ---
- Subjective Encounter Start Date: 06/28/17 Encounter Start Time: 09:15 Subjective: is amb in room, has pain at biopsy site, back pain w radiation to right LE -: no sob, is breathing better now - Objective MAR Reviewed: Yes Vital Signs & Weight: Vital Signs (12 hours) Temp Pulse Resp BP Pulse Ox 06/28/17 09:31 176/98 H 06/28/17 08:00 99 F 105 H 18 95 06/28/17 06:22 92 16 92 L 06/28/17 05:35 97 166/80 H 06/28/17 04:30 97.7 F 101 H 18 178/86 H 99 06/28/17 01:59 93 L 06/28/17 00:54 105 H 18 93 L 06/28/17 00:00 99.4 F 94 18 158/81 H 92 L Weight Admit Weight 140 lb 9.6 oz Weight 140 lb 1 oz I&O: 06/27/17 06/28/17 06/29/17 06:59 06:59 06:59 Intake Total 1625 2828 Output Total 1000 1400 Balance 625 1428 Result Diagrams: 06/26/17 04:25 06/26/17 04:25 Phys Exam - Physical Examination HEENT: PERRLA, moist MMs Neck: no JVD, supple Respiratory: no wheezing, no rales rhonchi+ Cardiovascular: RRR, no significant murmur Gastrointestinal: soft, non-tender, positive bowel sounds Musculoskeletal: no edema, pulses present Neurological: moves all 4 limbs 7th nr palsy Psychiatric: A&O x 3 Dx/Plan (1) metastases Status: Acute Comment: multiple to L.spine, adrenal, scapula, pelvis likely lungs and brain. Unknown prim ?lungs (2) Fever Code(s): R50.9 - FEVER, UNSPECIFIED Status: Acute Comment: likely due to cancer, cultures are -ve (3) COPD (chronic obstructive pulmonary disease) Status: Chronic Qualifiers: COPD type: chronic bronchitis (4) Tobacco abuse Code(s): Z72.0 - TOBACCO USE Status: Chronic (5) Alcohol abuse Code(s): F10.10 - ALCOHOL ABUSE, UNCOMPLICATED Status: Chronic (6) Weight loss Status: Acute (7) HTN (hypertension) Code(s): I10 - ESSENTIAL (PRIMARY) HYPERTENSION Status: Chronic Qualifiers: Hypertension type: essential hypertension Qualified Code(s): I10 - Essential (primary) hypertension (8) Sepsis Code(s): A41.9 - SEPSIS, UNSPECIFIED ORGANISM Status: Ruled-out - Plan had iliac bone biopsy yesterday, await histopath report -: is being considered for radiation tx for brain and spine lesions -: ultram, lidocaine tts for pain, morphine prn -: nebs, augmentin -: for help with arranging outpt radiation/insurance issues * . Review of Systems - Medications/Allergies Allergies/Adverse Reactions: Allergies Allergy/AdvReac Type Severity Reaction Status Date / Time No Known Allergies Allergy Verified 06/25/17 19:45 Medications: Current Medications Acetaminophen (Tylenol) 650 mg PO Q6H PRN PRN Reason: Headache/Fever or Pain Last Admin: 06/27/17 16:42 Dose: 650 mg Al Hydroxide/Mg Hydroxide (Maalox) 30 ml PO Q6H PRN PRN Reason: Heartburn or Indigestion Albuterol/Ipratropium (Duoneb) 3 ml NEB [id number] [facility] Last Admin: 06/28/17 06:22 Dose: 3 ml Amoxicillin/Clavulanate Potassium (Augmentin) 875 mg PO Q12HR [facility] Atorvastatin Calcium (Lipitor) 40 mg PO HS [facility] Last Admin: 06/27/17 20:58 Dose: 40 mg Bisacodyl (Dulcolax) 10 mg PO DAILYPRN PRN PRN Reason: Constipation Calcium Carbonate (Tums) 1,000 mg PO Q4H PRN PRN Reason: Heartburn or Indigestion Enoxaparin Sodium (Lovenox) 40 mg SC 0900 [facility] Last Admin: 06/28/17 08:24 Dose: 40 mg Hydralazine HCl (Apresoline) 20 mg SLOW IVP Q2H PRN PRN Reason: elevated BP Last Admin: 06/27/17 14:57 Dose: 20 mg Sodium Chloride (Normal Saline 0.9%) 1,000 mls @ 100 mls/hr IV .Q10H [facility] Last Admin: 06/28/17 04:41 Dose: 1,000 mls Labetalol HCl (Normodyne) 20 mg SLOW IVP Q4H PRN PRN Reason: elevated bp Lidocaine (Lidoderm 5% Patch) 1 patch TD DAILY [facility] Metoprolol Tartrate (Lopressor) 12.5 mg PO BID [facility] Last Admin: 06/28/17 08:22 Dose: 12.5 mg Morphine Sulfate (Morphine) 2 mg SLOW IVP Q2H PRN PRN Reason: Pain Last Admin: 06/28/17 04:38 Dose: 2 mg Ondansetron HCl (Zofran) 4 mg IVP Q6H PRN PRN Reason: Nausea/Vomiting Senna (Senokot) 2 tab PO HSPRN PRN PRN Reason: Constipation Sodium Chloride (Flush - Normal Saline) 10 ml IVF Q12HR [facility] Last Admin: 06/28/17 08:28 Dose: Not Given Sodium Chloride (Flush - Normal Saline) 10 ml IVF PRN PRN PRN Reason: Saline Flush Tramadol HCl (Ultram) 50 mg PO Q6H PRN PRN Reason: pain
[2017-06-28] MEDS: traMADol HCl 50 MG TAB PO PRN (17:06)
[2017-06-28] MEDS: Amoxicillin/Potassium Clav 875 MG TAB PO SCH (20:32)
[2017-06-28] MEDS: Atorvastatin Calcium 40 MG TAB PO SCH (20:32)
--- NOTE | 2017-06-28 20:52 | CON ---
DATE OF CONSULTATION: 06/28/2017 REASON FOR CONSULTATION: Metastatic disease. HISTORY OF PRESENT ILLNESS: Mr. Self is a 57-year-old -[place] male who presented to the em ergency room a couple of days ago with weakness and headache. He was having some difficulty with wal jenny and he had a right facial droop. He underwent a CT scan of the head, which showed no evidence o f stroke; however, he had a large lytic lesion involving the right petrous bone. MRI confirmed the l ytic lesion. He then had a scan of his chest, abdomen and pelvis, which showed some very small pulmo nary nodules, some lytic lesions involving the vertebral bodies, but no obvious primary lesion. He u nderwent a CT guided biopsy of the L2 vertebral body yesterday, the path is currently pending. The p atient complains of pain in his back. He is having difficulty ambulating. He denies any chest pain or shortness of breath. He is having trouble swallowing secondary to right facial droop, likely from cranial nerve compromise. He has been seen by Speech, he does feel like he is aspirating. He denie s any recent weight loss. No numbness, tingling, or recent seizure activity. PAST MEDICAL HISTORY: 1. Hypertension. 2. Arthritis. PAST SURGICAL HISTORY: None. ALLERGIES: No known drug allergies. HOME MEDICATIONS: None. FAMILY HISTORY: His mother had unknown type of cancer and in her 80s. Father had diabetes. SOCIAL HISTORY: He lives by himself in [place]. He is a daily drinker and a daily smoker, no drug us e. REVIEW OF SYSTEMS: A 12-point review of systems is negative except for noted in HPI. PHYSICAL EXAMINATION: VITAL SIGNS: Temperature is 98.9 with a maximum temperature of 102.7, pulse is 112, blood pressure i s 183/100, respiratory rate is 24, O2 sats 94% on 2 liters. GENERAL: This is a well-developed, well-nourished male, in no acute distress. HEENT: Normocephalic, atraumatic. Pupils equal and reactive to light. He has poor dentition. NECK: Supple. CARDIOVASCULAR: Regular rate and rhythm. LUNGS: Clear to auscultation. ABDOMEN: Soft, nontender. Bowel sounds are present. There is no organomegaly. SKIN: No rash. HEMATOLOGIC: No petechia or purpura. NEUROLOGIC: He has right-sided facial droop. Motor strength is normal in his extremities. PERTINENT LABORATORY DATA AND X-RAYS: Current WBCs of 14.3, hemoglobin 11, hematocrit 32.9, platelet count is 484,000, 69% neutrophils, 11% bands, 14% neutrophils. PT is 13.2, INR is 1.1, PTT 33.8. S odium is 134, potassium 3.7, chloride 101, CO2 is 23, BUN is 19, creatinine 1.33, calcium is 8.6, tot al bilirubin is 0.3, AST is 32, ALT is 36, alkaline phosphatase is 151, creatinine kinase is 69. Tro ponin is 0.045. Serum total protein is 7.4, albumin 3.9, globulin 3.9. Radiology per HPI. ASSESSMENT: Metastatic disease with lytic lesion of the right petrous bone. DISCUSSION: We will await final path to give recommendations on chemotherapy treatment. Dr. Amrit aguiar as seen the patient and feels he is a candidate for radiation due to his cranial nerve weakness. The patient has a difficult social situation as he lives alone and he is uninsured. I believe the top case assembler is working on assistance with family and for financial assistance as well. We will be happy to take care of the patient. He will likely get his first treatment in the outpatient setting. Thank you for the consult.
[2017-06-28] MEDS ORDERED: Melatonin 3 MG TAB PO SCH (21:00)
[2017-06-29] MEDS: Lidocaine Patch Removal 1 EACH TOP SCH (00:16)
[2017-06-29] MEDS: traMADol HCl 50 MG TAB PO PRN ×2 (00:19→13:11)
[2017-06-29] MEDS: hydrALAZINE 20 MG/ML VIAL SLOW IVP PRN (00:19)
[2017-06-29] MEDS: Sodium Chloride 0.9% 1,000 ML IV SCH ×3 (01:28→16:26)
[2017-06-29] MEDS: Metoprolol Tartrate 25 MG TAB PO SCH ×2 (08:26→20:10)
[2017-06-29] MEDS: Amoxicillin/Potassium Clav 875 MG TAB PO SCH ×2 (08:26→20:10)
[2017-06-29] MEDS: Enoxaparin Sodium 40 MG/0.4 ML SYRINGE SC SCH (08:26)
--- NOTE | 2017-06-29 10:46 | PDOC.PN ---
- Subjective Encounter Start Date: 06/29/17 Encounter Start Time: 10:00 Subjective: no new complaints, biopsy site pain is better -: is amb in room, wearing tslo brace when amb/upright - Objective MAR Reviewed: Yes Vital Signs & Weight: Vital Signs (12 hours) Temp Pulse Resp BP BP Pulse Ox 06/29/17 08:00 99.6 F 110 H 20 149/77 H 92 L 06/29/17 04:00 98.3 F 106 H 20 148/71 H 92 L 06/29/17 02:29 93 L 06/29/17 01:24 94 137/70 06/29/17 01:08 104 H 18 93 L 06/29/17 00:19 94 173/84 H 06/29/17 00:00 99.9 F H 94 20 173/84 H 92 L Weight Admit Weight 140 lb 9.6 oz Weight 137 lb 6 oz I&O: 06/28/17 06/29/17 06/30/17 06:59 06:59 06:59 Intake Total 2828 2640 1200 Output Total 1400 2300 Balance 9195 293 6623 Result Diagrams: 06/26/17 04:25 06/26/17 04:25 Phys Exam - Physical Examination HEENT: PERRLA, moist MMs Neck: no JVD, supple Respiratory: no wheezing, no rales Cardiovascular: RRR, no significant murmur Gastrointestinal: soft, non-tender, positive bowel sounds Musculoskeletal: no edema, pulses present Neurological: moves all 4 limbs 7th nr palsy Psychiatric: A&O x 3 Dx/Plan (1) lung adenocarcinoma with metastasis Status: Acute (2) metastases Status: Acute Comment: multiple to L.spine, adrenal, scapula, pelvis likely lungs and brain. Primary lung adenocarcinoma (3) Fever Code(s): R50.9 - FEVER, UNSPECIFIED Status: Acute Comment: likely due to cancer, cultures are -ve (4) COPD (chronic obstructive pulmonary disease) Status: Chronic Qualifiers: COPD type: chronic bronchitis (5) Tobacco abuse Code(s): Z72.0 - TOBACCO USE Status: Chronic (6) Alcohol abuse Code(s): F10.10 - ALCOHOL ABUSE, UNCOMPLICATED Status: Chronic (7) Weight loss Status: Acute (8) HTN (hypertension) Code(s): I10 - ESSENTIAL (PRIMARY) HYPERTENSION Status: Chronic Qualifiers: Hypertension type: essential hypertension Qualified Code(s): I10 - Essential (primary) hypertension - Plan bx confirms lung adenocarcinoma -: will start radiation therapy to brain lesion from tomorrow, d/w -: CM working on financial assistance/insurance -: dc per nohelia/'s advice -: ensure 1 can tid, is tolerated oral diet * . Review of Systems - Medications/Allergies Allergies/Adverse Reactions: Allergies Allergy/AdvReac Type Severity Reaction Status Date / Time No Known Allergies Allergy Verified 06/25/17 19:45 Medications: Current Medications Acetaminophen (Tylenol) 650 mg PO Q6H PRN PRN Reason: Headache/Fever or Pain Last Admin: 06/27/17 16:42 Dose: 650 mg Al Hydroxide/Mg Hydroxide (Maalox) 30 ml PO Q6H PRN PRN Reason: Heartburn or Indigestion Albuterol/Ipratropium (Duoneb) 3 ml NEB [id number] [facility] Last Admin: 06/29/17 08:25 Dose: Not Given Amoxicillin/Clavulanate Potassium (Augmentin) 875 mg PO Q12HR [facility] Last Admin: 06/29/17 08:26 Dose: 875 mg Atorvastatin Calcium (Lipitor) 40 mg PO HS [facility] Last Admin: 06/28/17 20:32 Dose: 40 mg Bisacodyl (Dulcolax) 10 mg PO DAILYPRN PRN PRN Reason: Constipation Calcium Carbonate (Tums) 1,000 mg PO Q4H PRN PRN Reason: Heartburn or Indigestion Enoxaparin Sodium (Lovenox) 40 mg SC 0900 [facility] Last Admin: 06/29/17 08:26 Dose: 40 mg Hydralazine HCl (Apresoline) 20 mg SLOW IVP Q2H PRN PRN Reason: elevated BP Last Admin: 06/29/17 00:19 Dose: 20 mg Sodium Chloride (Normal Saline 0.9%) 1,000 mls @ 100 mls/hr IV .Q10H [facility] Last Admin: 06/29/17 08:26 Dose: Not Given Labetalol HCl (Normodyne) 20 mg SLOW IVP Q4H PRN PRN Reason: elevated bp Lidocaine (Lidoderm 5% Patch) 1 patch TD 1200 JUANITA Metoprolol Tartrate (Lopressor) 12.5 mg PO BID [facility] Last Admin: 06/29/17 08:26 Dose: 12.5 mg Miscellaneous Medication (Lidocaine Patch Removal) 1 each TOP 2359 [facility] Last Admin: 06/29/17 00:16 Dose: Not Given Morphine Sulfate (Morphine) 2 mg SLOW IVP Q2H PRN PRN Reason: Pain Last Admin: 06/28/17 17:06 Dose: 2 mg Ondansetron HCl (Zofran) 4 mg IVP Q6H PRN PRN Reason: Nausea/Vomiting Senna (Senokot) 2 tab PO HSPRN PRN PRN Reason: Constipation Sodium Chloride (Flush - Normal Saline) 10 ml IVF Q12HR [facility] Last Admin: 06/29/17 08:28 Dose: 10 ml Sodium Chloride (Flush - Normal Saline) 10 ml IVF PRN PRN PRN Reason: Saline Flush Tramadol HCl (Ultram) 50 mg PO Q6H PRN PRN Reason: pain Last Admin: 06/29/17 00:19 Dose: 50 mg
[2017-06-29 11:41] VITALS: BMI 22.1
[2017-06-29] MEDS: Lidocaine 5% Patch TD SCH (11:53)
[2017-06-29] MEDS: Acetaminophen 325 MG TAB PO PRN (13:11)
[2017-06-29] MEDS: Atorvastatin Calcium 40 MG TAB PO SCH (20:10)
[2017-06-29] MEDS ORDERED: Melatonin 3 MG TAB PO SCH (22:15)
[2017-06-30] MEDS: Lidocaine Patch Removal 1 EACH TOP SCH (02:36)
[2017-06-30] MEDS: Sodium Chloride 0.9% 1,000 ML IV SCH (02:36)
[2017-06-30] MEDS: Metoprolol Tartrate 25 MG TAB PO SCH ×2 (08:45→21:15)
[2017-06-30] MEDS: Amoxicillin/Potassium Clav 875 MG TAB PO SCH ×2 (08:47→21:14)
[2017-06-30] MEDS: Enoxaparin Sodium 40 MG/0.4 ML SYRINGE SC SCH (08:47)
[2017-06-30 09:11] LABS: #Lymphocytes 1.1 thou/uL (1.20-3.40); #Monocytes 0.5 thou/uL (0.11-0.59); #Neutrophils 3.5 thou/uL (1.40-6.50); %Eosinophils 0.7 % (0.0-10.0); %Lymphocytes 21.5 % (21.0-51.0); %Neutrophils 67.7 % (42.0-75.0); Hemoglobin 10.3 g/dL (14.0-18.0); Mean Corpuscular HGB CONC 32.1 g/dL (32.0-36.0); Mean Corpuscular Hemoglobin 31.7 pg (27.0-31.0); Mean Corpuscular Volume 98.6 fl (80.0-94.0); Mean Platelet Volume 6.4 fL (7.4-10.4); Platelet Count 559 thou/uL (130-400); RBC Distribution Width 12.3 % (11.5-14.5); Red Blood Cell (RBC) Count 3.25 mill/uL (4.70-6.10); White Blood Cell (WBC) Count 5.2 thou/uL (4.8-10.8)
[2017-06-30 09:39] LABS: Anion Gap 12 mmol/L (10-20); BUN (Urea Nitrogen) 17 mg/dL (8.4-25.7); Calc. Creatinine Clearance 65 mL/min (70-130); Calcium 8.5 mg/dL (7.8-10.44); Carbon Dioxide 24 mmol/L (22-29); Chloride 102 mmol/L (98-107); Estimated GFR-MDRD 86; Glucose 114 mg/dL (70-105); Potassium 3.4 mmol/L (3.5-5.1); Sodium 135 mmol/L (136-145)
[2017-06-30] MEDS: Lidocaine 5% Patch TD SCH (11:47)
--- NOTE | 2017-06-30 13:40 | PDOC.PN ---
- Subjective Encounter Start Date: 06/30/17 Encounter Start Time: 08:00 Subjective: no sob or palp -: feels better - Objective MAR Reviewed: Yes Vital Signs & Weight: Vital Signs (12 hours) Temp Pulse Pulse Pulse Resp BP BP 06/30/17 12:08 93 16 06/30/17 09:45 103 H 106 H 182/82 H 140/79 06/30/17 08:00 97.3 F L 110 H 32 H 06/30/17 07:27 100 18 06/30/17 04:31 06/30/17 04:00 98.1 F 92 20 06/30/17 01:52 95 18 BP Pulse Ox Pulse Ox Pulse Ox 06/30/17 12:08 96 06/30/17 09:45 97 95 06/30/17 08:00 147/79 H 97 06/30/17 07:27 95 06/30/17 04:31 96 06/30/17 04:00 139/72 93 L 06/30/17 01:52 94 L Weight Admit Weight 140 lb 9.6 oz Weight 132 lb 9 oz I&O: 06/29/17 06/30/17 07/01/17 06:59 06:59 06:59 Intake Total 2640 5260 720 Output Total 2300 950 Balance 340 4310 720 Result Diagrams: 06/30/17 08:32 06/30/17 08:32 Phys Exam - Physical Examination HEENT: PERRLA, moist MMs Neck: no JVD, supple Respiratory: no wheezing, no rales Cardiovascular: RRR, no significant murmur Gastrointestinal: soft, non-tender, positive bowel sounds Musculoskeletal: no edema, pulses present Neurological: non-focal, moves all 4 limbs Psychiatric: A&O x 3 Dx/Plan (1) lung adenocarcinoma with metastasis Status: Acute (2) metastases Status: Acute Comment: multiple to L.spine, adrenal, scapula, pelvis likely lungs and brain. Primary lung adenocarcinoma (3) Fever Code(s): R50.9 - FEVER, UNSPECIFIED Status: Acute Comment: likely due to cancer, cultures are -ve (4) COPD (chronic obstructive pulmonary disease) Status: Chronic Qualifiers: COPD type: chronic bronchitis (5) Tobacco abuse Code(s): Z72.0 - TOBACCO USE Status: Chronic (6) Alcohol abuse Code(s): F10.10 - ALCOHOL ABUSE, UNCOMPLICATED Status: Chronic (7) Weight loss Status: Acute (8) HTN (hypertension) Code(s): I10 - ESSENTIAL (PRIMARY) HYPERTENSION Status: Chronic Qualifiers: Hypertension type: essential hypertension Qualified Code(s): I10 - Essential (primary) hypertension - Plan hemostable -: is starting radiation therapy from today -: dc plan in am -: for help with meds/financial assistance -: augmentin, nebs, ultram and lidocaine patch * . Review of Systems - Medications/Allergies Allergies/Adverse Reactions: Allergies Allergy/AdvReac Type Severity Reaction Status Date / Time No Known Allergies Allergy Verified 06/25/17 19:45 Medications: Current Medications Acetaminophen (Tylenol) 650 mg PO Q6H PRN PRN Reason: Headache/Fever or Pain Last Admin: 06/29/17 13:11 Dose: 650 mg Al Hydroxide/Mg Hydroxide (Maalox) 30 ml PO Q6H PRN PRN Reason: Heartburn or Indigestion Albuterol/Ipratropium (Duoneb) 3 ml NEB [id number] [facility] Last Admin: 06/30/17 12:08 Dose: 3 ml Amoxicillin/Clavulanate Potassium (Augmentin) 875 mg PO Q12HR [facility] Last Admin: 06/30/17 08:47 Dose: 875 mg Atorvastatin Calcium (Lipitor) 40 mg PO HS [facility] Last Admin: 06/29/17 20:10 Dose: 40 mg Bisacodyl (Dulcolax) 10 mg PO DAILYPRN PRN PRN Reason: Constipation Calcium Carbonate (Tums) 1,000 mg PO Q4H PRN PRN Reason: Heartburn or Indigestion Enoxaparin Sodium (Lovenox) 40 mg SC 0900 [facility] Last Admin: 06/30/17 08:47 Dose: 40 mg Hydralazine HCl (Apresoline) 20 mg SLOW IVP Q2H PRN PRN Reason: elevated BP Last Admin: 06/29/17 00:19 Dose: 20 mg Labetalol HCl (Normodyne) 20 mg SLOW IVP Q4H PRN PRN Reason: elevated bp Lidocaine (Lidoderm 5% Patch) 1 patch TD 1200 [facility] Last Admin: 06/30/17 11:47 Dose: 1 patch Melatonin (Melatonin) 6 mg PO HS [facility] Metoprolol Tartrate (Lopressor) 12.5 mg PO BID [facility] Last Admin: 06/30/17 08:45 Dose: 12.5 mg Miscellaneous Medication (Lidocaine Patch Removal) 1 each TOP 2359 [facility] Last Admin: 06/30/17 02:36 Dose: 1 each Morphine Sulfate (Morphine) 2 mg SLOW IVP Q2H PRN PRN Reason: Pain Last Admin: 06/30/17 08:55 Dose: 2 mg Ondansetron HCl (Zofran) 4 mg IVP Q6H PRN PRN Reason: Nausea/Vomiting Senna (Senokot) 2 tab PO HSPRN PRN PRN Reason: Constipation Sodium Chloride (Flush - Normal Saline) 10 ml IVF Q12HR [facility] Last Admin: 06/30/17 09:02 Dose: Not Given Sodium Chloride (Flush - Normal Saline) 10 ml IVF PRN PRN PRN Reason: Saline Flush Tramadol HCl (Ultram) 50 mg PO Q6H PRN PRN Reason: pain Last Admin: 06/29/17 13:11 Dose: 50 mg
[2017-06-30] MEDS ORDERED: Melatonin 3 MG TAB PO SCH (21:00)
[2017-06-30] MEDS: Atorvastatin Calcium 40 MG TAB PO SCH (21:14)
[2017-07-01] MEDS: Lidocaine Patch Removal 1 EACH TOP SCH (05:24)
[2017-07-01] MEDS: traMADol HCl 50 MG TAB PO PRN (07:58)
[2017-07-01] MEDS: Metoprolol Tartrate 25 MG TAB PO SCH (09:15)
[2017-07-01] MEDS: Enoxaparin Sodium 40 MG/0.4 ML SYRINGE SC SCH (09:15)
[2017-07-01] MEDS: Amoxicillin/Potassium Clav 875 MG TAB PO SCH (09:16)
[2017-07-01] MEDS: Lidocaine 5% Patch TD SCH (12:39)
--- NOTE | 2017-07-01 13:26 | PDOC.PN ---
- Subjective Encounter Start Date: 07/01/17 Encounter Start Time: 10:15 Subjective: no sob, is amb in room - Objective MAR Reviewed: Yes Vital Signs & Weight: Vital Signs (12 hours) Temp Pulse Resp BP Pulse Ox 07/01/17 11:45 99.5 F 114 H 22 H 201/99 H 100 07/01/17 08:08 112 H 18 89 L 07/01/17 08:00 97.8 F 115 H 22 H 183/94 H 89 L Weight Admit Weight 140 lb 9.6 oz Weight 132 lb 9 oz I&O: 06/30/17 07/01/17 07/02/17 06:59 06:59 06:59 Intake Total 5260 1360 Output Total 950 1750 Balance 4310 -390 Result Diagrams: 06/30/17 08:32 06/30/17 08:32 Phys Exam - Physical Examination HEENT: PERRLA, moist MMs Neck: no JVD, supple Respiratory: no wheezing, no rales Cardiovascular: RRR, no significant murmur Gastrointestinal: soft, non-tender, positive bowel sounds Musculoskeletal: no edema, pulses present Neurological: non-focal, moves all 4 limbs Psychiatric: A&O x 3 Dx/Plan (1) lung adenocarcinoma with metastasis Status: Acute (2) metastases Status: Acute Comment: multiple to L.spine, adrenal, scapula, pelvis likely lungs and brain. Primary lung adenocarcinoma (3) Fever Code(s): R50.9 - FEVER, UNSPECIFIED Status: Acute Comment: likely due to cancer, cultures are -ve (4) COPD (chronic obstructive pulmonary disease) Status: Chronic Qualifiers: COPD type: chronic bronchitis (5) Tobacco abuse Code(s): Z72.0 - TOBACCO USE Status: Chronic (6) Alcohol abuse Code(s): F10.10 - ALCOHOL ABUSE, UNCOMPLICATED Status: Chronic (7) Weight loss Status: Acute (8) HTN (hypertension) Code(s): I10 - ESSENTIAL (PRIMARY) HYPERTENSION Status: Chronic Qualifiers: Hypertension type: essential hypertension Qualified Code(s): I10 - Essential (primary) hypertension - Plan hemostable -: dc pt home -: to f/u with and * .
[2017-07-01] MEDS: Acetaminophen 325 MG TAB PO PRN (15:23)
[2017-07-01 17:32] VITALS: BP 179/98; TEMP 99.7
--- NOTE | 2017-07-02 04:05 | DIS ---
DATE OF ADMISSION: 06/25/2017 DATE OF DISCHARGE: 07/01/2017 DISCHARGE DISPOSITION: To home. PRIMARY DISCHARGE DIAGNOSES: Metastatic adenocarcinoma of lung; has metastasis to brain, scapula, lumbar spine, pelvis, and adrenal glands; fever secondary to malignancy; chronic obstructive pulmonary disease; tobacco abuse; alcohol abuse ; weight loss; and hypertension. PROCEDURES DONE DURING HOSPITALIZATION: MRI brain done showed large mass, which is destructive in nature involving right petrous bone. There was associated edema in the right mastoid air cells. Metastatic lesion was suspected. Echo with 2D Doppler showed an EF of 55%-60%. CT chest, abdomen, and pelvis with contrast done showed osseous, adrenal, and pulmonary metastases ; severe central canal stenosis at the L2; nonobstructing right renal calculus; bilateral lung infiltrates; incomplete distention versus gastric wall thickening ; has had right iliac lytic bone lesion biopsy done by Interventional Radiology on 06/27/2017, biopsy results revealed metastatic carcinoma compatible with lung adenocarcinoma. He has had radiation treatment started. H&H 10 and 32, platelet count 559. Had indeterminate troponin with peaking up to 0.04. LDL 64 , BUN 17, creatinine 1.0. INPATIENT CONSULTS: Dr. Hoyos for Neurosurgery, Dr. Mahmood for Pulmonology , Dr. Brasher for Cardiology, and Dr. Marcus for Radiation Oncology, and Ms. Ivanna Bernard for Oncology. DISCHARGE MEDICATIONS: Augmentin 875 mg p.o. twice daily for another 5 days, Lipitor 40 mg p.o. at bedtime, DuoNeb q.6 hourly, lidocaine 5% transdermal patch daily, Ultram p.r.n. for pain, Lopressor 12.5 mg p.o. twice daily, melatonin 6 mg p.o. at bedtime. ALLERGIES: No known drug allergies. DISCHARGE PLAN: The patient to follow up with Dr. Rea as advised. He needs to continue daily radiation therapy for his intracranial metastasis from Dr. Marcus. BRIEF COURSE DURING HOSPITALIZATION: The patient initially got admitted on the with complaints of not feeling well and was found to have facial palsy. He also had elevated blood pressures on arrival. The patient apparently did not have any known medical problems prior to arrival here. Initial CT brain showed mass with destruction of petrous part of the bone. He has had subsequent CT chest, abdomen and pelvic CAT scan to look for primary, which showed multiple metastases. Interventional Radiology was consulted for biopsy of the iliac bone, which was easier access. The biopsy results came back positive for adenocarcinoma. He has had consultations from Dr. Hoyos from Neurosurgery, Dr. Mahmood for Pulmonology, Dr. Brasher for Cardiology, Dr. Marcus for Radiation Oncology, and Ms. Ivanna Bernard for Hematology/Oncology. He has had one session of radiation therapy done during his stay here. Case management consultation was requested for help with financial assistance upon discharge. He needs followup with Dr. Rea for Hematology/Oncology and their office will let him know the date and time of appointment. The patient needs to continue radiation therapy daily until advised by Dr. Marcus. This is to the brain metastasis. He will also shortly begin chemotherapy for the rest of the lesions. He was counselled to wear Lumbar brace when upright or ambulating due to metastasis at L2 with spinal stenosis. A total of 35 minutes was spent on discharge plan. Please see a [id number] documentation on [facility] for the day of discharge. [facility]
--- NOTE | 2017-07-02 14:24 | EKG ---
Test Reason : Blood Pressure : / mmHG Vent. Rate : 099 BPM Atrial Rate : 099 BPM P-R Int : 126 ms QRS Dur : 082 ms QT Int : 358 ms P-R-T Axes : 064 075 095 degrees QTc Int : 459 ms Normal sinus rhythm Nonspecific T wave abnormality Abnormal ECG Confirmed by MALENA SOLORIO ([id number]), sports editor TRAVON GUTIERREZ ([id number]) on 07/02/2017 2:24:20 PM Referred By: Confirmed By:MALENA SOLORIO
== END 2017-07-01 17:25 | disposition home or self-care (01) | DRG 988 ==
LOC: ERS 14:23 → 2SE 19:09 → ONC 06-27 14:26
PROVIDERS: ADMIT Internal Medicine; ATTEND Internal Medicine
PROC: 0QB23ZX Excision of Right Pelvic Bone, Percutaneous Approach, Diagnostic (ICD-10-PCS; principal; 2017-06-27)
DX: C34.90 Malignant neoplasm of unspecified part of unspecified bronchus or lung (principal); I16.1 Hypertensive emergency; C79.31 Secondary malignant neoplasm of brain; C79.51 Secondary malignant neoplasm of bone; C79.70 Secondary malignant neoplasm of unspecified adrenal gland; C79.89 Secondary malignant neoplasm of other specified sites; J44.9 Chronic obstructive pulmonary disease, unspecified; F10.10 Alcohol abuse, uncomplicated; I10 Essential (primary) hypertension; G51.0 Bell's palsy; F17.210 Nicotine dependence, cigarettes, uncomplicated
CPT/HCPCS: 0042T; 20225; 36415; 70450; 70496; 70498; 70551; 71260; 74177; 77012; 77014; 77280; 77290; 77334; 77412; 80048; 80053; 80061; 80202; 82550; 82553; 84484; 85025; 85610; 85730; 87040; 87086; 88307; 88333; 88341; 88342; 93005; 93306; 94640; 94760; 96374; 96375; J2270; A4216; G8978-GP-CK; G8979-GP-CI; G8996-GN-CN; G8997-GN-CM; J0131; J0360; J1650; J2250; J2405; J2543; J2997; J3010; J3370; J7050; J7620

== ENCOUNTER 2017-07-08 09:30 | Inpatient (IN) | payer OTHER, SELFPAY ==
[2017-07-08] MEDS ORDERED: Acetaminophen 500 MG TAB ONE (10:25)
--- NOTE | 2017-07-08 10:26 | RAD ---
CHEST ONE VIEW: History: Fever. Patient needs feeding tube. Comparison: None. FINDINGS: Normal cardiac silhouette. Pulmonary vessels and hilum are normal. Costophrenic angles are clear. Int erstitial lung bases may represent chronic change. Infiltrate cannot be excluded. Lungs are hyperinfl ated. No pneumothorax. Skin folds in the right hemithorax are noted. IMPRESSION: Increased interstitial opacity lung bases due to infiltrate or chronic change. Continued surveillance . POS: [facility]
[2017-07-08 10:38] LABS: Hemoglobin 10.9 g/dL (14.0-18.0); Mean Corpuscular HGB CONC 33.7 g/dL (32.0-36.0); Mean Corpuscular Hemoglobin 31.4 pg (27.0-31.0); Mean Corpuscular Volume 93.3 fl (80.0-94.0); Mean Platelet Volume 6.1 fL (7.4-10.4); Platelet Count 660 thou/uL (130-400); RBC Distribution Width 12.5 % (11.5-14.5); Red Blood Cell (RBC) Count 3.47 mill/uL (4.70-6.10); White Blood Cell (WBC) Count 1.9 thou/uL (4.8-10.8)
[2017-07-08 10:42] LABS: INR-International Normal Ratio 1.1; PTT 33.2 SEC (22.9-36.1); Prothrombin Time 14.1 SEC (12.0-14.7)
[2017-07-08 10:55] LABS: ALT (SGPT) 56 U/L (8-55); AST (SGOT) 31 U/L (5-34); Albumin 3.3 g/dL (3.5-5.0); Alkaline Phosphatase 135 U/L (40-150); Anion Gap 16 mmol/L (10-20); BUN (Urea Nitrogen) 21 mg/dL (8.4-25.7); Bilirubin, Total 0.5 mg/dL (0.2-1.2); CK (CPK) 27 U/L (30-200); Calc. Creatinine Clearance 0 mL/min (70-130); Calcium 9.1 mg/dL (7.8-10.44); Carbon Dioxide 26 mmol/L (22-29); Chloride 94 mmol/L (98-107); Estimated GFR-MDRD 66; Globulin 4.3 g/dL (2.4-3.5); Glucose 127 mg/dL (70-105); Lipase 5 U/L (8-78); Magnesium 1.9 mg/dL (1.6-2.6); Potassium 4.1 mmol/L (3.5-5.1); Protein, Total 7.6 g/dL (6.0-8.3); Sodium 132 mmol/L (136-145)
[2017-07-08 10:58] LABS: CKMB 0.4 ng/mL (0-6.6); Troponin I 0.032 ng/mL (< 0.028)
[2017-07-08] MEDS ORDERED: Cefepime 2 GM, Syringe 2.5 ML in Sodium Chloride 0.9% 10 ML SLOW IVP SCH (11:00)
[2017-07-08] MEDS ORDERED: Oseltamivir 75 MG CAP PO SCH (11:00)
[2017-07-08 11:03] LABS: Anisocytosis SLIGHT = 6-15 cells (100X) (0-5/hpf); Band 11 % (5-11); Lymphocytes 19 % (21-51); MDiff Complete? YES; Metamyelocyte 4 % (0-0); Monocytes 8 % (0-10); Myelocyte 1 % (0-0); Neutrophil 49 % (42-75); PLT Morphology Comment Appears Increased; Reactive Lymphocytes 2 % (0-10); Reflex for Review?? YES
[2017-07-08] MEDS ORDERED: Ondansetron ODT 4 MG TAB PO PRN (11:36)
[2017-07-08] MEDS ORDERED: Guaifenesin DM 100-10/5 ML UDCUP PO PRN (11:36)
[2017-07-08] MEDS ORDERED: Ondansetron HCl/PF 4 MG/2 ML Vial IVP PRN (11:36)
[2017-07-08] MEDS ORDERED: Acetaminophen 325 MG TAB PO PRN (11:36)
[2017-07-08] MEDS ORDERED: Milk Of Magnesia 30 ML UDCUP PO PRN (11:36)
[2017-07-08] MEDS ORDERED: Vancomycin HCl 1.25 GM in Sodium Chloride 0.9% 250 ML 250 ML IVPB SCH (11:45)
[2017-07-08] MEDS ORDERED: Albuterol Sulfate 2.5 mg/3 ml Neb NEB PRN (12:20)
[2017-07-08] MEDS ORDERED: Lorazepam 2 MG/ML VIAL SLOW IVP PRN (12:38)
[2017-07-08] MEDS: Sodium Chloride 0.9% 1,000 ML IV SCH ×2 (15:24→21:13)
[2017-07-08 16:29] LABS: Troponin I 0.043 ng/mL (< 0.028)
--- NOTE | 2017-07-08 18:33 | HP ---
PRIMARY CARE PHYSICIAN: [facility]. CHIEF COMPLAINT: "I have difficulty swallowing foods." HISTORY OF PRESENT ILLNESS: Mr. Aramis Mehta is a 57-year-old male with a past medical history of metastatic adenocarcinoma of the lungs and hypertension, who presented to the emergency room due to difficulty swallowing. He reports he has had these symptoms ever since he had a CVA. He was seen by his oncologist due to this issue and was also presented to the emergency room for further treatment. At the emergency room, he was found to be tachycardic and febrile with a T-max of 101.1 degree Fahrenheit. He was saturating at 91% on room air. Labs revealed neutropenia and elevated creatinine. Influenza B was positive. He also had a chest x-ray, which showed infiltrates in bilateral lung bases. The only complaint the patient has was odynophagia and cough productive of whitish sputum which he reports as chronic. He denies chest pain, shortness of breath, chills, but reports having some aches at the end of the day. He has no urinary or abdominal symptoms. He has been receiving full body radiation therapy and last session was yesterday. He states he has had it for a few days, but unsure how many days in total that has been done. PAST MEDICAL HISTORY: Hypertension, CVA, metastatic lung cancer, and COPD. ALLERGIES: None. FAMILY HISTORY: Significant for hypertension and cardiovascular disease. SOCIAL HISTORY: He has a 30+ years of smoking, but says last cigarette he smoked was about 3 weeks ago. He has also recently quit drinking after drinking 4-5 beers a day for several years. ALLERGIES: None. REVIEW OF SYSTEMS: A 12-point review of systems was negative apart from as mentioned in the HPI. HOME MEDICATIONS: Reviewed and reconciled. PHYSICAL EXAMINATION: VITAL SIGNS: Within normal limits apart from his heart rate which is slightly tachycardic (105). He is saturating on 94% on 2 liters of nasal cannula oxygen. GENERAL: Not in acute distress, resting comfortably in bed. He is alert and well oriented. HEENT: Normocephalic, atraumatic. PERRLA, EOMI. Dry mucous membranes, anicteric. NECK: Soft, supple, full range of movement. No JVD. CARDIOVASCULAR: Slightly tachycardic with irregular rhythm. S1 and S2 only with no murmurs, rubs or gallops. RESPIRATORY: Reduced breath sounds bilaterally, but no wheezes or rales. EXTREMITIES: No skeletal abnormalities. Full range of movement. No edema. NEUROLOGIC: Alert and oriented to time, place and person. There are no focal deficits. SKIN: Warm, dry, well perfused with no rashes or lesions. PSYCHIATRIC: Normal mood and affect. LABORATORY DATA: WBC 1.9, hemoglobin 10.9, platelet count 660. Sodium 132, BUN /creatinine 21/1.34. Lactic acid 1.6. Troponin 0.032. INR 1.1. IMAGING: Chest x-ray as stated in HPI. ASSESSMENT AND PLAN: 1. Influenza pneumonia. The patient has been started on intravenous vancomycin and cefepime. We will continue oxygen supplementation and wean off. Also place on p.r.n. nebulizer therapy as well as Tamiflu. 2. Dysphagia, likely Risperdal effect, cerebrovascular accident. We will get Speech Language Pathology evaluation. He might require modified barium swallow and GI consult for possible PEG tube depending on how he performs. 3. Metastatic lung cancer, continue outpatient radiation therapy. 4. Hypertension. His blood pressure is currently at goal. He takes metoprolol 12.5 mg b.i.d. at home. We will restart medications once confirmed. 5. Acute kidney injury. This is likely prerenal secondary to poor p.o. intake. We will hydrate parenterally. Monitor his in's and out's and creatinine. 6. Elevated troponin. This is likely a type 2 NSTEMI. We will trend. The patient is chest pain free. 7. Neutropenia. He had a fever in the emergency room and has been started on cefepime. We will observe neutropenic precautions and obtain Infectious Disease consult. 8. Code status: FULL CODE. 9. Deep venous thrombosis prophylaxis with subcutaneous enoxaparin. MTDD
[2017-07-08] MEDS: Cefepime 1 GM, Admixture Fee 1 EACH in Sodium Chloride 0.9% 10 ML SLOW IVP SCH (20:57)
[2017-07-08] MEDS: Famotidine 40 MG/4 ML VIAL SLOW IVP SCH (20:57)
[2017-07-08] MEDS ORDERED: Cefepime 1 GM in Sodium Chloride 0.9% 100 ML IVPB SCH (21:00)
[2017-07-08] MEDS: Oseltamivir 75 MG CAP PO SCH (21:11)
[2017-07-08] MEDS: Docusate 100 MG CAP PO SCH (21:11)
[2017-07-08] MEDS: Atorvastatin Calcium 40 MG TAB PO SCH (21:11)
[2017-07-08] MEDS: Metoprolol Tartrate 25 MG TAB PO SCH (21:11)
[2017-07-08] MEDS: Melatonin 3 MG TAB PO SCH (21:11)
[2017-07-08 22:46] LABS: Troponin I 0.077 ng/mL (< 0.028)
--- NOTE | 2017-07-08 23:24 | PDOC.EVN ---
Event Note - Event Note Event Note: RN called - troponins slightly elevated than the previous one. Still in indeterminate range. Will repeat in AM. Pt is NPO until seen by Speech. Patient is chest pain free per RN. Troponin elevation probably from demand ischemia from pneumonia
[2017-07-08] MEDS ORDERED: Aspirin 325 mg Enteric Coated Tablet PO SCH (23:30)
[2017-07-09] MEDS: Sodium Chloride 0.9% 1,000 ML IV SCH (01:29)
[2017-07-09 04:50] LABS: Anion Gap 13 mmol/L (10-20); BUN (Urea Nitrogen) 21 mg/dL (8.4-25.7); Calc. Creatinine Clearance 65 mL/min (70-130); Calcium 8.6 mg/dL (7.8-10.44); Carbon Dioxide 23 mmol/L (22-29); Chloride 101 mmol/L (98-107); Estimated GFR-MDRD Greater than 90; Glucose 101 mg/dL (70-105); Potassium 3.6 mmol/L (3.5-5.1); Sodium 133 mmol/L (136-145)
[2017-07-09 04:54] LABS: Troponin I 0.066 ng/mL (< 0.028)
[2017-07-09 05:13] LABS: Band 20 % (5-11); Hemoglobin 9.8 g/dL (14.0-18.0); Lymphocytes 32 % (21-51); MDiff Complete? YES; Mean Corpuscular HGB CONC 34.4 g/dL (32.0-36.0); Mean Corpuscular Hemoglobin 32.4 pg (27.0-31.0); Mean Corpuscular Volume 94.2 fl (80.0-94.0); Mean Platelet Volume 5.9 fL (7.4-10.4); Monocytes 32 % (0-10); Neutrophil 16 % (42-75); PLT Morphology Comment Appears Increased; Platelet Count 540 thou/uL (130-400); RBC Distribution Width 12.4 % (11.5-14.5); Red Blood Cell (RBC) Count 3.03 mill/uL (4.70-6.10); Target Cells SLIGHT = 2-5 cells (100X) (0-1/hpf); White Blood Cell (WBC) Count 1.8 thou/uL (4.8-10.8)
[2017-07-09] MEDS ORDERED: FLU VACC QS2017-18 36 mo. & older 0.5 ML SYRINGE IM ONE (09:00)
[2017-07-09] MEDS ORDERED: Prevnar 13-Val Conj/PF 0.5 ML SYRINGE IM ONE (09:00)
[2017-07-09] MEDS: Cefepime 1 GM, Admixture Fee 1 EACH in Sodium Chloride 0.9% 10 ML SLOW IVP SCH ×2 (09:38→21:10)
[2017-07-09] MEDS: Vancomycin HCl 1 GM in Premix Bag 1 BAG IVPB SCH (09:40)
[2017-07-09] MEDS: Docusate 100 MG CAP PO SCH ×2 (09:43→19:52)
[2017-07-09] MEDS: Oseltamivir 75 MG CAP PO SCH ×2 (09:43→19:52)
[2017-07-09] MEDS: Metoprolol Tartrate 25 MG TAB PO SCH ×2 (09:43→19:52)
[2017-07-09] MEDS: Enoxaparin Sodium 40 MG/0.4 ML SYRINGE SC SCH (09:43)
--- NOTE | 2017-07-09 11:00 | PDOC.PN ---
- Subjective Encounter Start Date: 07/09/17 Encounter Start Time: 11:07 Subjective: No new complaints. -: No acute events overngiht. - Objective Resuscitation Status: Resuscitation Status FULL:Full Resuscitation MAR Reviewed: Yes Vital Signs & Weight: Vital Signs (12 hours) Temp Pulse Resp BP Pulse Ox 07/09/17 07:38 98.5 F 96 18 134/83 91 L 07/09/17 07:16 97 20 92 L 07/09/17 05:44 98.5 F 96 18 162/79 H 92 L 07/09/17 00:45 92 16 100 07/09/17 00:00 98.3 F 92 18 155/88 H 96 Weight Admit Weight 124 lb Weight 124 lb Result Diagrams: 07/09/17 04:18 07/09/17 04:18 Phys Exam - Physical Examination Constitutional: NAD HEENT: PERRLA, moist MMs, sclera anicteric Neck: no JVD, supple, full ROM Respiratory: no wheezing, no rales, no rhonchi, clear to auscultation bilateral Cardiovascular: RRR, no significant murmur, no rub Gastrointestinal: soft, non-tender, no distention, positive bowel sounds Musculoskeletal: no edema, pulses present Neurological: non-focal, moves all 4 limbs Psychiatric: normal affect, A&O x 3 Skin: no rash Dx/Plan (1) Dysphagia Code(s): R13.10 - DYSPHAGIA, UNSPECIFIED Status: Acute Qualifiers: Dysphagia type: oropharyngeal phase Qualified Code(s): R13.12 - Dysphagia, oropharyngeal phase Plan: Failed speech swallow eval. GI consulted for PEG tube. NPO until then. Nutrition with dextrose saline. (2) Influenza and pneumonia Status: Acute Plan: Influenza B positive. Continue broad spectrum antibiotics, tamiflu. Blood cultures negative so far. (3) THA (acute kidney injury) Code(s): N17.9 - ACUTE KIDNEY FAILURE, UNSPECIFIED Status: Resolved Plan: Resolved w hydration. (4) Elevated troponin Code(s): R74.8 - ABNORMAL LEVELS OF OTHER SERUM ENZYMES Status: Acute Plan: 2/2 type 2 NSTEMI. Pt chest pain free and troponin trending down. (5) Neutropenia Code(s): D70.9 - NEUTROPENIA, UNSPECIFIED Status: Acute Plan: Likely a combination of infection and chemotherapy. Will observe neutropenic precautions and monitor. Pt is on cefepime. (6) lung adenocarcinoma with metastasis Status: Acute Plan: Undergoing outpatient radiotherapy. States he has not been getting chemo. Oncology consult. (7) Alcohol abuse Code(s): F10.10 - ALCOHOL ABUSE, UNCOMPLICATED Status: Chronic Plan: Reports quitting. Will place on PRN lorazepam for possible withdrawal. (8) COPD (chronic obstructive pulmonary disease) Status: Chronic Qualifiers: COPD type: unspecified COPD Qualified Code(s): J44.9 - Chronic obstructive pulmonary disease, unspecified Plan: Not in acute exacerbation. NEBS ordered. (9) HTN (hypertension) Code(s): I10 - ESSENTIAL (PRIMARY) HYPERTENSION Status: Chronic Qualifiers: Hypertension type: essential hypertension - Plan cont current plan of care, continue antibiotics, out of bed/ambulate, DVT proph w/lovenox * . Review of Systems - Medications/Allergies Allergies/Adverse Reactions: Allergies Allergy/AdvReac Type Severity Reaction Status Date / Time No Known Allergies Allergy Verified 07/08/17 13:47 Medications: Current Medications Acetaminophen (Tylenol) 650 mg PO Q4H PRN PRN Reason: Headache/Fever or Pain Hydrocodone Bitart/Acetaminophen ([place] 5/325) 1 tab PO Q4H PRN PRN Reason: Moderate Pain (4-6) Albuterol Sulfate (Ventolin) 2.5 mg NEB [id number] PRN PRN Reason: Wheezing Albuterol/Ipratropium (Duoneb) 3 ml NEB [id number] [facility] Last Admin: 07/09/17 07:16 Dose: 3 ml Atorvastatin Calcium (Lipitor) 40 mg PO HS [facility] Last Admin: 07/08/17 21:11 Dose: Not Given Docusate Sodium (Colace) 100 mg PO BID [facility] Last Admin: 07/09/17 09:43 Dose: Not Given Enoxaparin Sodium (Lovenox) 40 mg SC 0900 [facility] Last Admin: 07/09/17 09:43 Dose: 40 mg Famotidine (Pepcid) 20 mg SLOW IVP 2100 [facility] Last Admin: 07/08/17 20:57 Dose: 20 mg Guaifenesin/Dextromethorphan (Robitussin Dm) 15 ml PO Q4H PRN PRN Reason: Cough Sodium Chloride (Normal Saline 0.9%) 1,000 mls @ 100 mls/hr IV .Q10H [facility] Last Admin: 07/09/17 01:29 Dose: 1,000 mls Vancomycin HCl 1 gm/ Device 200 mls @ 200 mls/hr IVPB 0900 [facility] Last Admin: 07/09/17 09:40 Dose: 200 mls Cefepime HCl 1 gm/Miscellaneous Medication 1 each/ Sodium Chloride 10 mls @ 120 mls/hr SLOW IVP Q12HR [facility] Last Admin: 07/09/17 09:38 Dose: 10 mls Lidocaine (Lidoderm 5% Patch) 1 patch TD 1200 [facility] Lorazepam (Ativan) 1 mg SLOW IVP Q4H PRN PRN Reason: Anxiety/Agitation Magnesium Hydroxide (Milk Of Magnesium) 30 ml PO DAILYPRN PRN PRN Reason: Constipation Melatonin (Melatonin) 6 mg PO HS [facility] Last Admin: 07/08/17 21:11 Dose: Not Given Metoprolol Tartrate (Lopressor) 12.5 mg PO BID [facility] Last Admin: 07/09/17 09:43 Dose: Not Given Miscellaneous Medication (Lidocaine Patch Removal) 1 each TOP 2359 [facility] Ondansetron HCl (Zofran Odt) 4 mg PO Q6H PRN PRN Reason: Nausea/Vomiting Ondansetron HCl (Zofran) 4 mg IVP Q6H PRN PRN Reason: Nausea/Vomiting Oseltamivir Phosphate (Tamiflu) 75 mg PO BID [facility] Stop: 07/13/17 09:01 Last Admin: 07/09/17 09:43 Dose: Not Given Sodium Chloride (Flush - Normal Saline) 10 ml IVF Q12HR [facility] Last Admin: 07/09/17 09:42 Dose: Not Given Sodium Chloride (Flush - Normal Saline) 10 ml IVF PRN PRN PRN Reason: Saline Flush
[2017-07-09] MEDS ORDERED: Labetalol HCl 100 MG/20 ML VIAL SLOW IVP PRN (12:00)
[2017-07-09] MEDS ORDERED: Labetalol HCl 100 MG/20 ML VIAL SLOW IVP SCH (12:15)
[2017-07-09] MEDS: Dextrose 5 %-0.45 % NaCl 1,000 ML IV SCH ×2 (12:36→21:11)
[2017-07-09] MEDS: Lidocaine 5% Patch TD SCH (12:42)
[2017-07-09] MEDS: Atorvastatin Calcium 40 MG TAB PO SCH (19:52)
[2017-07-09] MEDS: Melatonin 3 MG TAB PO SCH (19:52)
[2017-07-09] MEDS: Famotidine 40 MG/4 ML VIAL SLOW IVP SCH (21:11)
[2017-07-09] MEDS: Morphine 2 MG/ML SYRINGE SLOW IVP PRN (21:17)
--- NOTE | 2017-07-10 00:12 | CON ---
DATE OF CONSULTATION: 07/09/2017 REFERRING PHYSICIAN: Dr. Lynnette Street, [facility]. REASON FOR CONSULTATION: Evaluate the patient for endoscopic gastrostomy tube placement. HISTORY OF PRESENT ILLNESS: Mr. Tyson Self is a very unfortunate 57-year-old -[place] male with lung carcinoma, status post cerebrovascular accident. The patient has been having some difficul ty swallowing and also painful swallowing over the last several weeks. He says he is able to eat and after a while, things started coming up. The patient also complains of painful swallowing. The pat ient is not able to take adequate amount of food and every time he tries to eat something, he feels o ne third stays down and two thirds come up. He also has painful swallowing. At that time, he also f eels the food sticking in the esophagus. He has had lung carcinoma with metastasis. The patient und erwent radiation therapy by Dr. Marcus. He was advised by Dr. Marcus to have endoscopic gastrostomy tu be placement, because of the dysphagia and also history of painful swallowing, nausea and vomiting. MEDICAL ILLNESSES: 1. Hypertension. 2. Chronic obstructive pulmonary disease. 3. Adenocarcinoma of lung with metastasis under the outpatient radiation. 4. Alcohol abuse. 5. Neutropenia due to chemotherapy. 6. Influenza, possible pneumonia. 7. Acute kidney injury. 8. Elevated troponin, nonspecific. ALLERGIES: None. SOCIAL HISTORY: The patient drinks beer on a regular basis, at least 4-5 beers a day. He also smoke d one to half packet of cigarettes per day for 30+ years. FAMILY HISTORY: Hypertension and heart disease. MEDICATIONS: List reviewed. REVIEW OF SYSTEMS: Remarkable for basically dysphagia, odynophagia, nausea and vomiting. PHYSICAL EXAMINATION: GENERAL: He is a fragile looking -[place] male, appears comfortable. He is awake, alert, an d communicative. He is constantly spitting up saliva and mucus while in the room. VITAL SIGNS: Temperature 98.7 degrees Fahrenheit, pulse is 107, blood pressure is 209/97. HEENT: Conjunctivae clear. CARDIOVASCULAR: First and second heart sounds were normal. LUNGS: Scattered rhonchi heard. ABDOMEN: Soft. Abdomen is nondistended. Abdomen is nontender. There is no organomegaly or masses. Bowel sounds normal. LABORATORY DATA: Shows WBC of 1800, hemoglobin 9.8, hematocrit 28.6, platelet count 540,000, polymor phs 16, bands 20%, lymphocytes 32, monocytes 32. Serum chemistries show sodium 133, potassium 3.6, c hloride 101, bicarbonate 23, BUN is 21, creatinine is 1 mg percent, calcium 8.6. CLINICAL IMPRESSION: A 57-year-old -[place] male status post cerebrovascular accident, lung carcinoma with metastasis. The patient . He complains of painful swallowing and also nausea an d vomiting. I did talk to Mr. Self about having the EGD and PEG tube placement. He already know ab out the procedure as the hospitalist spoken to him. He is agreeable for the procedure. I will plan for EGD and PEG tube placement, hopefully tomorrow.
[2017-07-10] MEDS: Lidocaine Patch Removal 1 EACH TOP SCH (00:28)
[2017-07-10 05:12] LABS: Anion Gap 10 mmol/L (10-20); BUN (Urea Nitrogen) 16 mg/dL (8.4-25.7); Calc. Creatinine Clearance 66 mL/min (70-130); Calcium 8.6 mg/dL (7.8-10.44); Carbon Dioxide 25 mmol/L (22-29); Chloride 101 mmol/L (98-107); Estimated GFR-MDRD Greater than 90; Glucose 118 mg/dL (70-105); Potassium 3.2 mmol/L (3.5-5.1); Sodium 133 mmol/L (136-145)
[2017-07-10 05:42] LABS: Band 1 % (5-11); Hemoglobin 9.3 g/dL (14.0-18.0); Lymphocytes 28 % (21-51); MDiff Complete? YES; Mean Corpuscular HGB CONC 33.8 g/dL (32.0-36.0); Mean Corpuscular Hemoglobin 31.7 pg (27.0-31.0); Mean Corpuscular Volume 93.7 fl (80.0-94.0); Mean Platelet Volume 6.3 fL (7.4-10.4); Metamyelocyte 1 % (0-0); Monocytes 11 % (0-10); Myelocyte 1 % (0-0); Neutrophil 54 % (42-75); PLT Morphology Comment Appears Increased; Platelet Count 569 thou/uL (130-400); Polychromasia SLIGHT = 2-3 cells (100X) (0-2/hpf); RBC Distribution Width 12.4 % (11.5-14.5); Reactive Lymphocytes 4 % (0-10); Red Blood Cell (RBC) Count 2.93 mill/uL (4.70-6.10); White Blood Cell (WBC) Count 2.8 thou/uL (4.8-10.8)
[2017-07-10] MEDS: Morphine 2 MG/ML SYRINGE SLOW IVP PRN ×3 (07:52→20:14)
[2017-07-10 07:56] LABS: Vancomycin, Trough 8.7 ug/mL
[2017-07-10] MEDS: Enoxaparin Sodium 40 MG/0.4 ML SYRINGE SC SCH (08:00)
[2017-07-10] MEDS ORDERED: Pantoprazole 40 MG GRANULES PACKET PER TUBE SCH (10:00)
--- NOTE | 2017-07-10 11:37 | PDOC.PN ---
- Subjective Encounter Start Date: 07/10/17 Encounter Start Time: 07:00 no acute night events EGD planned for today - Objective Resuscitation Status: Resuscitation Status FULL:Full Resuscitation Vital Signs & Weight: Vital Signs (12 hours) Temp Pulse Resp BP Pulse Ox 07/10/17 07:25 98.5 F 93 18 160/87 H 91 L 07/10/17 06:31 95 20 93 L 07/10/17 05:47 98.4 F 90 20 163/88 H 93 L 07/10/17 00:28 98.1 F 86 20 157/84 H 100 07/09/17 23:39 94 L Weight Admit Weight 124 lb Weight 124 lb I&O: 07/09/17 07/10/17 07/11/17 05:59 06:59 06:59 Intake Total Balance Result Diagrams: 07/10/17 04:04 07/10/17 04:04 Additional Labs: Accuchecks 07/09/17 11:28 POC Glucose 109 Phys Exam - Physical Examination Constitutional: NAD HEENT: PERRLA, moist MMs, sclera anicteric Neck: no nodes, no JVD, supple mild rhonchi Cardiovascular: RRR Gastrointestinal: soft, non-tender Musculoskeletal: pulses present Neurological: moves all 4 limbs Psychiatric: A&O x 3 Dx/Plan (1) Dysphagia Code(s): R13.10 - DYSPHAGIA, UNSPECIFIED Status: Acute Qualifiers: Dysphagia type: oropharyngeal phase Qualified Code(s): R13.12 - Dysphagia, oropharyngeal phase (2) Fever Code(s): R50.9 - FEVER, UNSPECIFIED Status: Acute Comment: likely due to cancer, cultures are -ve (3) Influenza and pneumonia Status: Acute (4) Neutropenia Code(s): D70.9 - NEUTROPENIA, UNSPECIFIED Status: Acute (5) lung adenocarcinoma with metastasis Status: Acute (6) metastases Status: Acute Comment: multiple to L.spine, adrenal, scapula, pelvis likely lungs and brain. Primary lung adenocarcinoma (7) COPD (chronic obstructive pulmonary disease) Status: Chronic Qualifiers: COPD type: unspecified COPD Qualified Code(s): J44.9 - Chronic obstructive pulmonary disease, unspecified (8) HTN (hypertension) Code(s): I10 - ESSENTIAL (PRIMARY) HYPERTENSION Status: Chronic Qualifiers: Hypertension type: essential hypertension (9) THA (acute kidney injury) Code(s): N17.9 - ACUTE KIDNEY FAILURE, UNSPECIFIED Status: Resolved - Plan cont current plan of care, plan discussed w/ family, continue antibiotics, out of bed/ambulate * . EGD today follow recs from GI probable PEG tube placement Nutrition consult with tube feeds if PEG placed
[2017-07-10] MEDS: Oseltamivir 75 MG CAP PO SCH ×2 (12:01→20:17)
[2017-07-10] MEDS: Docusate 100 MG CAP PO SCH ×2 (12:01→20:17)
[2017-07-10] MEDS: Metoprolol Tartrate 25 MG TAB PO SCH ×2 (12:01→20:16)
[2017-07-10] MEDS: Cefepime 1 GM, Admixture Fee 1 EACH in Sodium Chloride 0.9% 10 ML SLOW IVP SCH ×2 (12:03→20:15)
[2017-07-10] MEDS: Dextrose 5 %-0.45 % NaCl 1,000 ML IV SCH ×2 (13:10→20:18)
[2017-07-10] MEDS: Vancomycin HCl 1 GM in Premix Bag 1 BAG IVPB SCH ×3 (13:12→20:18)
[2017-07-10] MEDS: Lidocaine 5% Patch TD SCH (13:17)
--- NOTE | 2017-07-10 14:47 | OP ---
DATE OF PROCEDURE: 07/10/2017 OPERATIVE PROCEDURE: Esophagogastroduodenoscopy with endoscopic gastrostomy tube placement. PREOPERATIVE DIAGNOSES: Lung carcinoma, status post cerebrovascular accident, dysphagia. POSTOPERATIVE DIAGNOSES: 1. Normal esophageal mucosa. 2. Gastric ulcer over the gastric body, which appears chronic and measured approximately 1.5 cm. 3. Antral gastritis. PROCEDURE IN DETAIL: The patient was placed on his back and was given sedation by Anesthesia Departm ent. The patient was already on scheduled antibiotics and no further antibiotics were given. The bi te block was placed. A Pentax video gastroscope under direct vision was passed down the oropharynx, past the GE junction, into the stomach, and subsequently into the descending duodenum. The esophagea l mucosa appeared normal. No esophagitis or any candidiasis. The GE junction, no pathology seen. T he fundus and cardia, no pathology seen. Over the gastric body, the patient was found to have an ulc eration, which appears chronic and culture blackish eschar. The antral mucosal erythematous. The du odenal bulb and descending duodenum, no pathology seen. A gastrostomy tube site was marked by transi llumination within the abdomen. The site was confirmed by applying finger pressure over the abdomina l wall. The site was cleaned and surgically prepped. The site was anesthetized with 1% Xylocaine in filtration. Over the site, a size 16 Angiocath was advanced into the stomach and through the Angioca th, a guidewire was fed into the stomach. The guidewire was grasped with polypectomy snare and pulle d outside the mouth. To the end of the guidewire, a gastrostomy tube was connected. A 0.5 to 0.75 c m sized incision was made in the skin over the wire site. The wire was pulled back retrograde and th e tube left in place. The patient rescoped again to confirm proper placement of G-tube. No complica tions noted. The stomach was decompressed and the scope removed. RECOMMENDATIONS: 1. Restart tube feeding later on today. 2. Protonix 40 mg once a day through the PEG tube.
[2017-07-10] MEDS ORDERED: Lidocaine 1% PF 5 ML VIAL ONE (17:07)
[2017-07-10] MEDS ORDERED: Propofol 200 MG/20 ML VIAL ONE (17:07)
[2017-07-10] MEDS: Atorvastatin Calcium 40 MG TAB PO SCH (20:16)
[2017-07-10] MEDS: Melatonin 3 MG TAB PO SCH (20:17)
[2017-07-10] MEDS: Famotidine 40 MG/4 ML VIAL SLOW IVP SCH (20:41)
[2017-07-11] MEDS: Lidocaine Patch Removal 1 EACH TOP SCH ×2 (00:32→23:10)
[2017-07-11] MEDS: Morphine 2 MG/ML SYRINGE SLOW IVP PRN ×2 (03:54→20:48)
[2017-07-11] MEDS: Dextrose 5 %-0.45 % NaCl 1,000 ML IV SCH ×2 (03:56→20:36)
[2017-07-11 05:17] LABS: #Eosinphils 0.1 thou/uL (0.0-0.7); #Lymphocytes 0.6 thou/uL (1.20-3.40); #Monocytes 0.6 thou/uL (0.11-0.59); #Neutrophils 3.9 thou/uL (1.40-6.50); %Basophils 0.4 % (0.0-1.0); %Eosinophils 1.9 % (0.0-10.0); %Lymphocytes 11.6 % (21.0-51.0); %Monocytes 12.1 % (0.0-10.0); Hemoglobin 8.9 g/dL (14.0-18.0); Mean Corpuscular HGB CONC 33.9 g/dL (32.0-36.0); Mean Corpuscular Hemoglobin 31.8 pg (27.0-31.0); Mean Corpuscular Volume 93.9 fl (80.0-94.0); Mean Platelet Volume 6.2 fL (7.4-10.4); Platelet Count 521 thou/uL (130-400); RBC Distribution Width 12.4 % (11.5-14.5); Red Blood Cell (RBC) Count 2.79 mill/uL (4.70-6.10); White Blood Cell (WBC) Count 5.3 thou/uL (4.8-10.8)
[2017-07-11 05:30] LABS: Anion Gap 10 mmol/L (10-20); BUN (Urea Nitrogen) 11 mg/dL (8.4-25.7); Calc. Creatinine Clearance 67 mL/min (70-130); Calcium 8.3 mg/dL (7.8-10.44); Carbon Dioxide 24 mmol/L (22-29); Chloride 101 mmol/L (98-107); Estimated GFR-MDRD Greater than 90; Glucose 123 mg/dL (70-105); Potassium 3.1 mmol/L (3.5-5.1); Sodium 132 mmol/L (136-145)
[2017-07-11] MEDS ORDERED: Potassium Chloride 40 MEQ in Premix Bag 1 BAG IVPB SCH (08:30)
[2017-07-11] MEDS ORDERED: Potassium Chloride 40 MEQ, Admixture Fee 1 EACH in Sodium Chloride 0.9% 250 ML 250 ML IVPB SCH (08:45)
[2017-07-11] MEDS: Metoprolol Tartrate 25 MG TAB PO SCH ×2 (09:09→20:35)
[2017-07-11] MEDS: Docusate 100 MG CAP PO SCH ×2 (09:10→20:35)
[2017-07-11] MEDS: Pantoprazole 40 MG GRANULES PACKET PER TUBE SCH (09:10)
[2017-07-11] MEDS: Oseltamivir 75 MG CAP PO SCH ×2 (09:10→20:35)
[2017-07-11] MEDS: Enoxaparin Sodium 40 MG/0.4 ML SYRINGE SC SCH (09:10)
[2017-07-11] MEDS: Cefepime 1 GM, Admixture Fee 1 EACH in Sodium Chloride 0.9% 10 ML SLOW IVP SCH ×2 (09:15→20:36)
[2017-07-11] MEDS: Vancomycin HCl 1 GM in Premix Bag 1 BAG IVPB SCH ×2 (09:15→21:01)
[2017-07-11] MEDS: HYDROcodone/Acetaminophen 5/325 mg Tablet PO PRN ×2 (09:22→17:40)
--- NOTE | 2017-07-11 10:57 | PDOC.PN ---
- Subjective Encounter Start Date: 07/11/17 Encounter Start Time: 08:55 states he is doing okay. overall feels week and a little pain at the peg tube site but no other complaints otherwise - Objective Resuscitation Status: Resuscitation Status FULL:Full Resuscitation Vital Signs & Weight: Vital Signs (12 hours) Temp Pulse Resp BP Pulse Ox 07/11/17 09:35 98.4 F 92 16 96 07/11/17 07:49 98.4 F 92 16 152/83 H 91 L 07/11/17 06:11 83 14 95 07/11/17 02:43 95 07/11/17 00:40 12 Weight Admit Weight 124 lb Weight 124 lb I&O: 07/10/17 07/11/17 07/12/17 06:59 06:59 06:59 Intake Total 120 Balance 120 Result Diagrams: 07/11/17 04:20 07/11/17 04:20 Phys Exam - Physical Examination Constitutional: NAD HEENT: PERRLA, moist MMs Neck: no nodes, no JVD, supple Respiratory: no wheezing, clear to auscultation bilateral Cardiovascular: RRR, no rub Gastrointestinal: soft, non-tender, positive bowel sounds Musculoskeletal: pulses present Neurological: moves all 4 limbs Psychiatric: normal affect, A&O x 3 Dx/Plan (1) Dysphagia Code(s): R13.10 - DYSPHAGIA, UNSPECIFIED Status: Acute Qualifiers: Dysphagia type: oropharyngeal phase Qualified Code(s): R13.12 - Dysphagia, oropharyngeal phase (2) Fever Code(s): R50.9 - FEVER, UNSPECIFIED Status: Acute Comment: likely due to cancer, cultures are -ve (3) Influenza and pneumonia Status: Acute (4) Neutropenia Code(s): D70.9 - NEUTROPENIA, UNSPECIFIED Status: Acute (5) lung adenocarcinoma with metastasis Status: Acute (6) metastases Status: Acute Comment: multiple to L.spine, adrenal, scapula, pelvis likely lungs and brain. Primary lung adenocarcinoma (7) COPD (chronic obstructive pulmonary disease) Status: Chronic Qualifiers: COPD type: unspecified COPD Qualified Code(s): J44.9 - Chronic obstructive pulmonary disease, unspecified (8) HTN (hypertension) Code(s): I10 - ESSENTIAL (PRIMARY) HYPERTENSION Status: Chronic Qualifiers: Hypertension type: essential hypertension (9) THA (acute kidney injury) Code(s): N17.9 - ACUTE KIDNEY FAILURE, UNSPECIFIED Status: Resolved - Plan cont current plan of care, continue antibiotics * . Will undergo radiation therapy PT OT eval and treat continue with Antibiotics titrating tube feeds. did not tolerate it last night per nurse
[2017-07-11] MEDS: Lidocaine 5% Patch TD SCH (12:18)
--- NOTE | 2017-07-11 17:37 | PRG ---
DATE OF SERVICE: 07/11/2017 SUBJECTIVE: This is a 57-year-old black male with status post cerebrovascular accident, metastatic c arcinoma of lung. He underwent EGD and PEG tube placement yesterday. The tube site appears very hea lthy. He is tolerating tube feeding very well. The . RECOMMENDATIONS: Continue tube feeding as tolerated. If there are any new problems since, please ca ll me back.
[2017-07-11] MEDS: Melatonin 3 MG TAB PO SCH (20:35)
[2017-07-11] MEDS: Atorvastatin Calcium 40 MG TAB PO SCH (20:35)
[2017-07-11] MEDS: Famotidine 40 MG/4 ML VIAL SLOW IVP SCH (20:36)
[2017-07-11 21:28] LABS: Vancomycin, Trough 20.2 ug/mL
[2017-07-12] MEDS: HYDROcodone/Acetaminophen 5/325 mg Tablet PO PRN ×3 (01:54→20:49)
[2017-07-12 04:56] LABS: #Eosinphils 0.1 thou/uL (0.0-0.7); #Lymphocytes 0.6 thou/uL (1.20-3.40); #Monocytes 0.6 thou/uL (0.11-0.59); #Neutrophils 4.3 thou/uL (1.40-6.50); %Basophils 0.1 % (0.0-1.0); %Lymphocytes 11.2 % (21.0-51.0); %Monocytes 11.1 % (0.0-10.0); %Neutrophils 76.6 % (42.0-75.0); Hemoglobin 9.2 g/dL (14.0-18.0); Mean Corpuscular HGB CONC 33.6 g/dL (32.0-36.0); Mean Corpuscular Hemoglobin 31.6 pg (27.0-31.0); Mean Corpuscular Volume 93.9 fl (80.0-94.0); Mean Platelet Volume 6.3 fL (7.4-10.4); Platelet Count 484 thou/uL (130-400); RBC Distribution Width 12.4 % (11.5-14.5); Red Blood Cell (RBC) Count 2.91 mill/uL (4.70-6.10); White Blood Cell (WBC) Count 5.7 thou/uL (4.8-10.8)
[2017-07-12 05:07] LABS: Anion Gap 13 mmol/L (10-20); BUN (Urea Nitrogen) 11 mg/dL (8.4-25.7); Calc. Creatinine Clearance 73 mL/min (70-130); Calcium 8.1 mg/dL (7.8-10.44); Carbon Dioxide 22 mmol/L (22-29); Chloride 103 mmol/L (98-107); Estimated GFR-MDRD Greater than 90; Glucose 125 mg/dL (70-105); Potassium 3.5 mmol/L (3.5-5.1); Sodium 134 mmol/L (136-145)
[2017-07-12] MEDS: Dextrose 5 %-0.45 % NaCl 1,000 ML IV SCH ×3 (05:19→20:42)
[2017-07-12] MEDS: Docusate 100 MG CAP PO SCH ×2 (08:28→20:36)
[2017-07-12] MEDS: Metoprolol Tartrate 25 MG TAB PO SCH ×2 (08:28→20:36)
[2017-07-12] MEDS: Enoxaparin Sodium 40 MG/0.4 ML SYRINGE SC SCH (08:29)
[2017-07-12] MEDS: Oseltamivir 75 MG CAP PO SCH ×2 (08:29→20:35)
[2017-07-12] MEDS: Pantoprazole 40 MG GRANULES PACKET PER TUBE SCH (08:29)
[2017-07-12] MEDS: Morphine 2 MG/ML SYRINGE SLOW IVP PRN ×3 (08:50→16:22)
[2017-07-12] MEDS: Cefepime 1 GM, Admixture Fee 1 EACH in Sodium Chloride 0.9% 10 ML SLOW IVP SCH ×2 (09:27→20:35)
[2017-07-12] MEDS: Vancomycin HCl 750 MG in Sodium Chloride 0.9% 250 ML 250 ML IVPB SCH ×2 (10:52→21:04)
[2017-07-12] MEDS: Lidocaine 5% Patch TD SCH (10:52)
--- NOTE | 2017-07-12 18:49 | PDOC.PN ---
- Subjective Encounter Start Date: 07/12/17 Encounter Start Time: 18:49 Subjective: nsg notes rev, lulú ovn, no new c/o still has some tenderness around -: PEG site - Objective Resuscitation Status: Resuscitation Status FULL:Full Resuscitation Vital Signs & Weight: Vital Signs (12 hours) Temp Pulse Resp BP BP Pulse Ox 07/12/17 18:09 90 12 97 07/12/17 16:48 162/92 H 07/12/17 16:17 94 176/100 H 07/12/17 16:00 98.3 F 94 20 176/100 H 96 07/12/17 08:00 98.4 F 92 16 157/93 H 95 Weight Admit Weight 124 lb Weight 124 lb I&O: 07/11/17 07/12/17 07/13/17 06:59 06:59 06:59 Intake Total 120 3060 30 Output Total 1250 Balance 120 1810 30 Result Diagrams: 07/13/17 03:34 07/13/17 03:34 Phys Exam - Physical Examination Constitutional: NAD HEENT: PERRLA, moist MMs, sclera anicteric Respiratory: no wheezing, no rales, no rhonchi, clear to auscultation bilateral coarseness and marginal air mvmt Cardiovascular: RRR, no significant murmur, no rub Gastrointestinal: soft, positive bowel sounds PEG site c/d/i, slight tenderness martha-site to palpation Musculoskeletal: no edema, pulses present Neurological: moves all 4 limbs Psychiatric: normal affect, A&O x 3 Dx/Plan - Plan URI * influenza + * respiratory status on RA, to complete 5d course of tamiflu * concern for CAP in setting of possible neutropenic fever as well * empiric cefepime + vancomycin since adm for high risk PNA * if continued stability, t/c d/c vancomycin s/po 5d course and then d/c cefepime - presentation potentially attributable wholly to influenza influenza, see above CAP, see above neutropenic fever * afebrile >48hrs * neutropenia, resolved * likely 2/2 influenza, PNA hx of lung adenoca w/ mets to L spine, adrenals, scapula, pelvis * radiation and chemo as per onc THA on adm, resolved HTN, stable hx COPD, stable dysphagia * likely related to hx of CVA * apprec GI c/s * s/p PEG placement, TF adv as cathy diet: TF activity: as cathy, PT dvt ppx Review of Systems - Medications/Allergies Allergies/Adverse Reactions: Allergies Allergy/AdvReac Type Severity Reaction Status Date / Time No Known Allergies Allergy Verified 07/08/17 13:47 Medications: Current Medications Acetaminophen (Tylenol) 650 mg PO Q4H PRN PRN Reason: Headache/Fever or Pain Hydrocodone Bitart/Acetaminophen ([place] 5/325) 1 tab PO Q4H PRN PRN Reason: Moderate Pain (4-6) Last Admin: 07/12/17 15:57 Dose: 1 tab Albuterol Sulfate (Ventolin) 2.5 mg NEB [id number] PRN PRN Reason: Wheezing Albuterol/Ipratropium (Duoneb) 3 ml NEB [id number] [facility] Last Admin: 07/12/17 18:09 Dose: 3 ml Atorvastatin Calcium (Lipitor) 40 mg PO HS [facility] Last Admin: 07/11/17 20:35 Dose: 40 mg Docusate Sodium (Colace) 100 mg PO BID [facility] Last Admin: 07/12/17 08:28 Dose: Not Given Enoxaparin Sodium (Lovenox) 40 mg SC 0900 [facility] Last Admin: 07/12/17 08:29 Dose: 40 mg Famotidine (Pepcid) 20 mg SLOW IVP 2100 [facility] Last Admin: 07/11/17 20:36 Dose: 20 mg Guaifenesin/Dextromethorphan (Robitussin Dm) 15 ml PO Q4H PRN PRN Reason: Cough Cefepime HCl 1 gm/Miscellaneous Medication 1 each/ Sodium Chloride 10 mls @ 120 mls/hr SLOW IVP Q12HR [facility] Last Admin: 07/12/17 09:27 Dose: 10 mls Dextrose/Sodium Chloride (D5 1/2 Ns) 1,000 mls @ 100 mls/hr IV .Q10H [facility] Last Admin: 07/12/17 08:51 Dose: 1,000 mls Vancomycin HCl 750 mg/ Sodium (Chloride) 250 mls @ 250 mls/hr IVPB 1000,2200 [facility] Last Admin: 07/12/17 10:52 Dose: 250 mls Labetalol HCl (Normodyne) 10 mg SLOW IVP Q4H PRN PRN Reason: SBP Greater Than 180 Last Admin: 07/12/17 16:17 Dose: 10 mg Lidocaine (Lidoderm 5% Patch) 1 patch TD 1200 [facility] Last Admin: 07/12/17 10:52 Dose: 1 patch Lorazepam (Ativan) 1 mg SLOW IVP Q4H PRN PRN Reason: Anxiety/Agitation Magnesium Hydroxide (Milk Of Magnesium) 30 ml PO DAILYPRN PRN PRN Reason: Constipation Melatonin (Melatonin) 6 mg PO HS [facility] Last Admin: 07/11/17 20:35 Dose: 6 mg Metoprolol Tartrate (Lopressor) 12.5 mg PO BID [facility] Last Admin: 07/12/17 08:28 Dose: 12.5 mg Miscellaneous Medication (Lidocaine Patch Removal) 1 each TOP 2359 [facility] Last Admin: 07/11/17 23:10 Dose: 1 each Morphine Sulfate (Morphine) 2 mg SLOW IVP Q4H PRN PRN Reason: Pain Last Admin: 07/12/17 16:22 Dose: 2 mg Ondansetron HCl (Zofran Odt) 4 mg PO Q6H PRN PRN Reason: Nausea/Vomiting Ondansetron HCl (Zofran) 4 mg IVP Q6H PRN PRN Reason: Nausea/Vomiting Oseltamivir Phosphate (Tamiflu) 75 mg PO BID [facility] Stop: 07/13/17 09:01 Last Admin: 07/12/17 08:29 Dose: 75 mg Pantoprazole Sodium (Protonix) 40 mg PER TUBE DAILY [facility] Last Admin: 07/12/17 08:29 Dose: 40 mg Sodium Chloride (Flush - Normal Saline) 10 ml IVF Q12HR [facility] Last Admin: 07/12/17 08:29 Dose: 10 ml Sodium Chloride (Flush - Normal Saline) 10 ml IVF PRN PRN PRN Reason: Saline Flush
[2017-07-12] MEDS: Melatonin 3 MG TAB PO SCH (20:35)
[2017-07-12] MEDS: Atorvastatin Calcium 40 MG TAB PO SCH (20:35)
[2017-07-12] MEDS: Famotidine 40 MG/4 ML VIAL SLOW IVP SCH (20:48)
[2017-07-12] MEDS: Lidocaine Patch Removal 1 EACH TOP SCH (23:49)
[2017-07-13 04:23] LABS: #Eosinphils 0.1 thou/uL (0.0-0.7); #Lymphocytes 0.7 thou/uL (1.20-3.40); #Monocytes 0.7 thou/uL (0.11-0.59); #Neutrophils 5.2 thou/uL (1.40-6.50); %Basophils 0.3 % (0.0-1.0); %Eosinophils 1.3 % (0.0-10.0); %Lymphocytes 10.8 % (21.0-51.0); %Monocytes 10.8 % (0.0-10.0); %Neutrophils 76.8 % (42.0-75.0); Hemoglobin 9.1 g/dL (14.0-18.0); Mean Corpuscular HGB CONC 34.4 g/dL (32.0-36.0); Mean Corpuscular Hemoglobin 32.5 pg (27.0-31.0); Mean Corpuscular Volume 94.3 fl (80.0-94.0); Mean Platelet Volume 6.4 fL (7.4-10.4); Platelet Count 439 thou/uL (130-400); RBC Distribution Width 12.7 % (11.5-14.5); White Blood Cell (WBC) Count 6.8 thou/uL (4.8-10.8)
[2017-07-13 04:42] LABS: Anion Gap 11 mmol/L (10-20); BUN (Urea Nitrogen) 12 mg/dL (8.4-25.7); Calc. Creatinine Clearance 80 mL/min (70-130); Calcium 8.3 mg/dL (7.8-10.44); Carbon Dioxide 24 mmol/L (22-29); Chloride 102 mmol/L (98-107); Estimated GFR-MDRD Greater than 90; Glucose 110 mg/dL (70-105); Potassium 3.7 mmol/L (3.5-5.1); Sodium 133 mmol/L (136-145)
[2017-07-13] MEDS: HYDROcodone/Acetaminophen 5/325 mg Tablet PO PRN ×4 (05:19→23:53)
[2017-07-13] MEDS: Cefepime 1 GM, Admixture Fee 1 EACH in Sodium Chloride 0.9% 10 ML SLOW IVP SCH ×2 (08:45→20:12)
[2017-07-13] MEDS: Oseltamivir 75 MG CAP PO SCH (08:47)
[2017-07-13] MEDS: Docusate 100 MG CAP PO SCH ×2 (08:47→20:13)
[2017-07-13] MEDS: Metoprolol Tartrate 25 MG TAB PO SCH ×2 (08:48→20:14)
[2017-07-13] MEDS: Enoxaparin Sodium 40 MG/0.4 ML SYRINGE SC SCH (08:51)
[2017-07-13] MEDS: Pantoprazole 40 MG GRANULES PACKET PER TUBE SCH (08:52)
[2017-07-13 09:26] LABS: Vancomycin, Trough 19.2 ug/mL
[2017-07-13] MEDS: Lidocaine 5% Patch TD SCH (13:05)
[2017-07-13] MEDS: Dextrose 5 %-0.45 % NaCl 1,000 ML IV SCH ×2 (13:05→20:11)
[2017-07-13 14:06] VITALS: BMI 20.8
--- NOTE | 2017-07-13 20:07 | PDOC.PN ---
- Subjective Encounter Start Date: 07/13/17 Encounter Start Time: 20:07 Subjective: nsg notes rev, lulú ovn, no new c/o - Objective Resuscitation Status: Resuscitation Status FULL:Full Resuscitation Vital Signs & Weight: Vital Signs (12 hours) Temp Pulse Resp BP Pulse Ox 07/13/17 19:00 93 16 97 07/13/17 16:00 99.1 F 102 H 18 163/96 H 94 L 07/13/17 12:00 20 162/101 H 94 L 07/13/17 08:43 95 07/13/17 08:39 90 20 95 Weight Admit Weight 124 lb Weight 129 lb I&O: 07/12/17 07/13/17 07/14/17 06:59 06:59 06:59 Intake Total 3060 2440 60 Output Total 1250 1200 Balance 1810 1240 60 Result Diagrams: 07/14/17 03:54 07/14/17 03:54 Phys Exam - Physical Examination Constitutional: NAD HEENT: PERRLA, moist MMs, sclera anicteric slightly dry mm Respiratory: no wheezing, no rhonchi, clear to auscultation bilateral Cardiovascular: RRR, no significant murmur, no rub Gastrointestinal: soft, non-tender, positive bowel sounds PEG site c/d/i, tolerating TF Musculoskeletal: no edema, pulses present Psychiatric: normal affect, A&O x 3 Dx/Plan - Plan URI * influenza + * s/p 5d course tamiflu * d/c empiric vancomycin (s/p 5d course), continue cefepime * concern for CAP in setting of possible neutropenic fever as well * if continued stability t/c transitioning to oral abx and start d/c planning at that point influenza, see above CAP, see above neutropenic fever * afebrile >48hrs * neutropenia, resolved * likely 2/2 influenza, PNA * repeat CBC with medication changes as per above hx of lung adenoca w/ mets to L spine, adrenals, scapula, pelvis * radiation and chemo as per onc THA on adm, resolved HTN, stable hx COPD, stable dysphagia * likely related to hx of CVA * apprec GI c/s * s/p PEG placement, TF adv as cathy diet: TF activity: as cathy, PT dvt ppx Review of Systems - Medications/Allergies Allergies/Adverse Reactions: Allergies Allergy/AdvReac Type Severity Reaction Status Date / Time No Known Allergies Allergy Verified 07/08/17 13:47 Medications: Current Medications Acetaminophen (Tylenol) 650 mg PO Q4H PRN PRN Reason: Headache/Fever or Pain Hydrocodone Bitart/Acetaminophen ([place] 5/325) 1 tab PO Q4H PRN PRN Reason: Moderate Pain (4-6) Last Admin: 07/14/17 05:27 Dose: 1 tab Albuterol Sulfate (Ventolin) 2.5 mg NEB [id number] PRN PRN Reason: Wheezing Albuterol/Ipratropium (Duoneb) 3 ml NEB [id number] [facility] Last Admin: 07/14/17 06:35 Dose: 3 ml Atorvastatin Calcium (Lipitor) 40 mg PO HS [facility] Last Admin: 07/13/17 20:12 Dose: 40 mg Docusate Sodium (Colace) 100 mg PO BID [facility] Last Admin: 07/13/17 20:13 Dose: 100 mg Enoxaparin Sodium (Lovenox) 40 mg SC 0900 [facility] Last Admin: 07/13/17 08:51 Dose: 40 mg Famotidine (Pepcid) 20 mg SLOW IVP 2100 [facility] Last Admin: 07/13/17 20:13 Dose: 20 mg Guaifenesin/Dextromethorphan (Robitussin Dm) 15 ml PO Q4H PRN PRN Reason: Cough Cefepime HCl 1 gm/Miscellaneous Medication 1 each/ Sodium Chloride 10 mls @ 120 mls/hr SLOW IVP Q12HR [facility] Last Admin: 07/13/17 20:12 Dose: 10 mls Dextrose/Sodium Chloride (D5 1/2 Ns) 1,000 mls @ 100 mls/hr IV .Q10H [facility] Last Admin: 07/14/17 05:27 Dose: Not Given Labetalol HCl (Normodyne) 10 mg SLOW IVP Q4H PRN PRN Reason: SBP Greater Than 180 Last Admin: 07/12/17 16:17 Dose: 10 mg Lidocaine (Lidoderm 5% Patch) 1 patch TD 1200 [facility] Last Admin: 07/13/17 13:05 Dose: 1 patch Lorazepam (Ativan) 1 mg SLOW IVP Q4H PRN PRN Reason: Anxiety/Agitation Magnesium Hydroxide (Milk Of Magnesium) 30 ml PO DAILYPRN PRN PRN Reason: Constipation Melatonin (Melatonin) 6 mg PO HS [facility] Last Admin: 07/13/17 20:13 Dose: 6 mg Metoprolol Tartrate (Lopressor) 12.5 mg PO BID [facility] Last Admin: 07/13/17 20:14 Dose: 12.5 mg Miscellaneous Medication (Lidocaine Patch Removal) 1 each TOP 2359 [facility] Last Admin: 07/13/17 23:54 Dose: 1 each Morphine Sulfate (Morphine) 2 mg SLOW IVP Q4H PRN PRN Reason: Pain Last Admin: 07/12/17 16:22 Dose: 2 mg Ondansetron HCl (Zofran Odt) 4 mg PO Q6H PRN PRN Reason: Nausea/Vomiting Ondansetron HCl (Zofran) 4 mg IVP Q6H PRN PRN Reason: Nausea/Vomiting Pantoprazole Sodium (Protonix) 40 mg PER TUBE DAILY [facility] Last Admin: 07/13/17 08:52 Dose: 40 mg Sodium Chloride (Flush - Normal Saline) 10 ml IVF Q12HR [facility] Last Admin: 07/13/17 20:14 Dose: Not Given Sodium Chloride (Flush - Normal Saline) 10 ml IVF PRN PRN PRN Reason: Saline Flush
[2017-07-13] MEDS: Atorvastatin Calcium 40 MG TAB PO SCH (20:12)
[2017-07-13] MEDS: Melatonin 3 MG TAB PO SCH (20:13)
[2017-07-13] MEDS: Famotidine 40 MG/4 ML VIAL SLOW IVP SCH (20:13)
[2017-07-13] MEDS: Lidocaine Patch Removal 1 EACH TOP SCH (23:54)
[2017-07-14 05:12] LABS: #Eosinphils 0.1 thou/uL (0.0-0.7); #Lymphocytes 0.6 thou/uL (1.20-3.40); #Monocytes 0.6 thou/uL (0.11-0.59); #Neutrophils 5.5 thou/uL (1.40-6.50); %Basophils 0.2 % (0.0-1.0); %Eosinophils 1.5 % (0.0-10.0); %Monocytes 9.1 % (0.0-10.0); %Neutrophils 80.2 % (42.0-75.0); Hemoglobin 9.3 g/dL (14.0-18.0); Mean Corpuscular HGB CONC 33.5 g/dL (32.0-36.0); Mean Corpuscular Hemoglobin 31.5 pg (27.0-31.0); Mean Corpuscular Volume 94.1 fl (80.0-94.0); Mean Platelet Volume 6.7 fL (7.4-10.4); Platelet Count 420 thou/uL (130-400); Red Blood Cell (RBC) Count 2.96 mill/uL (4.70-6.10); White Blood Cell (WBC) Count 6.8 thou/uL (4.8-10.8)
[2017-07-14] MEDS: HYDROcodone/Acetaminophen 5/325 mg Tablet PO PRN ×4 (05:27→22:38)
[2017-07-14] MEDS: Dextrose 5 %-0.45 % NaCl 1,000 ML IV SCH ×2 (05:27→11:43)
[2017-07-14 05:30] LABS: Anion Gap 11 mmol/L (10-20); BUN (Urea Nitrogen) 13 mg/dL (8.4-25.7); Calc. Creatinine Clearance 84 mL/min (70-130); Calcium 8.5 mg/dL (7.8-10.44); Carbon Dioxide 24 mmol/L (22-29); Chloride 101 mmol/L (98-107); Estimated GFR-MDRD Greater than 90; Glucose 116 mg/dL (70-105); Potassium 3.8 mmol/L (3.5-5.1); Sodium 132 mmol/L (136-145)
[2017-07-14] MEDS: Metoprolol Tartrate 25 MG TAB PO SCH ×2 (08:25→21:41)
[2017-07-14] MEDS: Docusate 100 MG CAP PO SCH ×2 (08:25→21:41)
[2017-07-14] MEDS: Pantoprazole 40 MG GRANULES PACKET PER TUBE SCH (08:27)
[2017-07-14] MEDS: Enoxaparin Sodium 40 MG/0.4 ML SYRINGE SC SCH (08:27)
[2017-07-14] MEDS: Cefepime 1 GM, Admixture Fee 1 EACH in Sodium Chloride 0.9% 10 ML SLOW IVP SCH (10:00)
[2017-07-14] MEDS: Lidocaine 5% Patch TD SCH (11:06)
[2017-07-14] MEDS: Melatonin 3 MG TAB PO SCH (21:41)
[2017-07-14] MEDS: Famotidine 40 MG/4 ML VIAL SLOW IVP SCH (21:41)
[2017-07-14] MEDS: Atorvastatin Calcium 40 MG TAB PO SCH (21:41)
[2017-07-14] MEDS: Lidocaine Patch Removal 1 EACH TOP SCH (22:42)
--- NOTE | 2017-07-14 23:43 | PDOC.PN ---
- Subjective Encounter Start Date: 07/14/17 Encounter Start Time: 06:27 Subjective: nsg notes rev, lulú ovn, no new c/o - Objective Resuscitation Status: Resuscitation Status FULL:Full Resuscitation Vital Signs & Weight: Vital Signs (12 hours) Temp Pulse Resp BP BP Pulse Ox 07/14/17 20:00 98.7 F 106 H 20 163/98 H 94 L 07/14/17 18:18 101 H 16 95 07/14/17 16:00 98.3 F 101 H 18 167/97 H 95 07/14/17 12:00 98.2 F 97 18 159/97 H 95 Weight Admit Weight 124 lb Weight 129 lb I&O: 07/13/17 07/14/17 07/15/17 06:59 06:59 06:59 Intake Total 2440 1760 330 Output Total 1200 1400 Balance 1240 360 330 Result Diagrams: 07/15/17 03:55 07/15/17 03:55 Phys Exam - Physical Examination Constitutional: NAD HEENT: PERRLA, moist MMs, sclera anicteric Respiratory: no wheezing, no rales, no rhonchi, clear to auscultation bilateral Cardiovascular: RRR, no significant murmur, no rub Gastrointestinal: soft, non-tender, positive bowel sounds PEG site c/d/i Musculoskeletal: no edema, pulses present Neurological: moves all 4 limbs Psychiatric: normal affect, A&O x 3 Dx/Plan - Plan URI * influenza + * s/p 5d course tamiflu * d/c empiric vancomycin (s/p 5d course) * d/c empiric cefepime (s/p 6d course) and start levaquin oral today (4 more days for 10 day course) * concern for CAP in setting of possible neutropenic fever as well influenza, see above CAP, see above neutropenic fever * afebrile >48hrs * neutropenia, resolved * likely 2/2 influenza, PNA * repeat CBC with medication changes as per above hx of lung adenoca w/ mets to L spine, adrenals, scapula, pelvis * radiation and chemo as per onc THA on adm, resolved HTN, stable hx COPD, stable dysphagia * likely related to hx of CVA * apprec GI c/s * s/p PEG placement, TF adv as cathy diet: TF activity: as cathy, PT dvt ppx potential d/c tomorrow if continue afebrile with de-escalation of abx regimen and stable labwork in AM (CBC BMP) Review of Systems - Medications/Allergies Allergies/Adverse Reactions: Allergies Allergy/AdvReac Type Severity Reaction Status Date / Time No Known Allergies Allergy Verified 07/08/17 13:47 Medications: Current Medications Acetaminophen (Tylenol) 650 mg PO Q4H PRN PRN Reason: Headache/Fever or Pain Hydrocodone Bitart/Acetaminophen ([place] 5/325) 1 tab PO Q4H PRN PRN Reason: Moderate Pain (4-6) Last Admin: 07/15/17 04:29 Dose: 1 tab Albuterol Sulfate (Ventolin) 2.5 mg NEB [id number] PRN PRN Reason: Wheezing Albuterol/Ipratropium (Duoneb) 3 ml NEB [id number] [facility] Last Admin: 07/15/17 01:19 Dose: 3 ml Atorvastatin Calcium (Lipitor) 40 mg PO HS [facility] Last Admin: 07/14/17 21:41 Dose: 40 mg Docusate Sodium (Colace) 100 mg PO BID [facility] Last Admin: 07/14/17 21:41 Dose: Not Given Enoxaparin Sodium (Lovenox) 40 mg SC 0900 [facility] Last Admin: 07/14/17 08:27 Dose: 40 mg Famotidine (Pepcid) 20 mg SLOW IVP 2100 [facility] Last Admin: 07/14/17 21:41 Dose: 20 mg Guaifenesin/Dextromethorphan (Robitussin Dm) 15 ml PO Q4H PRN PRN Reason: Cough Dextrose/Sodium Chloride (D5 1/2 Ns) 1,000 mls @ 100 mls/hr IV .Q10H [facility] Last Admin: 07/14/17 11:43 Dose: 1,000 mls Labetalol HCl (Normodyne) 10 mg SLOW IVP Q4H PRN PRN Reason: SBP Greater Than 180 Last Admin: 07/12/17 16:17 Dose: 10 mg Levofloxacin (Levaquin) 500 mg PO 0600 [facility] Last Admin: 07/15/17 04:29 Dose: 500 mg Lidocaine (Lidoderm 5% Patch) 1 patch TD 1200 [facility] Last Admin: 07/14/17 11:06 Dose: 1 patch Lorazepam (Ativan) 1 mg SLOW IVP Q4H PRN PRN Reason: Anxiety/Agitation Magnesium Hydroxide (Milk Of Magnesium) 30 ml PO DAILYPRN PRN PRN Reason: Constipation Melatonin (Melatonin) 6 mg PO HS [facility] Last Admin: 07/14/17 21:41 Dose: 6 mg Metoprolol Tartrate (Lopressor) 12.5 mg PO BID [facility] Last Admin: 07/14/17 21:41 Dose: 12.5 mg Miscellaneous Medication (Lidocaine Patch Removal) 1 each TOP 2359 [facility] Last Admin: 07/14/17 22:42 Dose: 1 each Morphine Sulfate (Morphine) 2 mg SLOW IVP Q4H PRN PRN Reason: Pain Last Admin: 07/12/17 16:22 Dose: 2 mg Ondansetron HCl (Zofran Odt) 4 mg PO Q6H PRN PRN Reason: Nausea/Vomiting Ondansetron HCl (Zofran) 4 mg IVP Q6H PRN PRN Reason: Nausea/Vomiting Pantoprazole Sodium (Protonix) 40 mg PER TUBE DAILY [facility] Last Admin: 07/14/17 08:27 Dose: 40 mg Sodium Chloride (Flush - Normal Saline) 10 ml IVF Q12HR [facility] Last Admin: 07/14/17 21:42 Dose: Not Given Sodium Chloride (Flush - Normal Saline) 10 ml IVF PRN PRN PRN Reason: Saline Flush
[2017-07-15] MEDS: HYDROcodone/Acetaminophen 5/325 mg Tablet PO PRN ×4 (04:29→21:05)
[2017-07-15 05:22] LABS: #Eosinphils 0.1 thou/uL (0.0-0.7); #Lymphocytes 0.5 thou/uL (1.20-3.40); #Monocytes 0.7 thou/uL (0.11-0.59); #Neutrophils 4.2 thou/uL (1.40-6.50); %Basophils 0.2 % (0.0-1.0); %Eosinophils 1.2 % (0.0-10.0); %Lymphocytes 9.5 % (21.0-51.0); %Monocytes 11.8 % (0.0-10.0); %Neutrophils 77.3 % (42.0-75.0); Hemoglobin 9.1 g/dL (14.0-18.0); Mean Corpuscular HGB CONC 33.7 g/dL (32.0-36.0); Mean Corpuscular Hemoglobin 32.6 pg (27.0-31.0); Mean Corpuscular Volume 96.5 fl (80.0-94.0); Mean Platelet Volume 6.9 fL (7.4-10.4); Platelet Count 405 thou/uL (130-400); RBC Distribution Width 13.1 % (11.5-14.5); White Blood Cell (WBC) Count 5.5 thou/uL (4.8-10.8)
[2017-07-15 05:45] LABS: Anion Gap 10 mmol/L (10-20); BUN (Urea Nitrogen) 14 mg/dL (8.4-25.7); Calc. Creatinine Clearance 82 mL/min (70-130); Calcium 8.5 mg/dL (7.8-10.44); Carbon Dioxide 27 mmol/L (22-29); Chloride 99 mmol/L (98-107); Estimated GFR-MDRD Greater than 90; Glucose 112 mg/dL (70-105); Potassium 3.7 mmol/L (3.5-5.1); Sodium 132 mmol/L (136-145)
--- NOTE | 2017-07-15 08:12 | PDOC.PN ---
- Subjective Encounter Start Date: 07/15/17 Encounter Start Time: 08:10 Subjective: I'M DOING BETTER, WAITING FOR XRT TO BRAIN - Objective Resuscitation Status: Resuscitation Status FULL:Full Resuscitation MAR Reviewed: Yes Vital Signs & Weight: Vital Signs (12 hours) Pulse Resp BP Pulse Ox 07/15/17 06:58 89 16 98 07/15/17 04:39 100 16 162/93 H 93 L 07/15/17 01:19 106 H 16 94 L Weight Admit Weight 124 lb Weight 129 lb I&O: 07/14/17 07/15/17 07/16/17 06:59 06:59 06:59 Intake Total 1760 390 Output Total 1400 Balance 360 390 Result Diagrams: 07/15/17 03:55 07/15/17 03:55 Phys Exam - Physical Examination Constitutional: NAD HEENT: PERRLA, moist MMs, sclera anicteric Neck: supple, full ROM Respiratory: no rhonchi Cardiovascular: RRR, no rub Gastrointestinal: soft, non-tender, no distention PEG IN PLACE Musculoskeletal: no edema, pulses present Neurological: non-focal, moves all 4 limbs Psychiatric: normal affect, A&O x 3 Skin: no rash Dx/Plan (1) SIADH (syndrome of inappropriate ADH production) Status: Acute (2) Dysphagia Code(s): R13.10 - DYSPHAGIA, UNSPECIFIED Status: Acute Qualifiers: Dysphagia type: oropharyngeal phase Qualified Code(s): R13.12 - Dysphagia, oropharyngeal phase (3) Fever Code(s): R50.9 - FEVER, UNSPECIFIED Status: Acute Comment: likely due to cancer, cultures are -ve (4) Influenza and pneumonia Status: Acute (5) Neutropenia Code(s): D70.9 - NEUTROPENIA, UNSPECIFIED Status: Acute (6) COPD (chronic obstructive pulmonary disease) Status: Chronic Qualifiers: COPD type: unspecified COPD Qualified Code(s): J44.9 - Chronic obstructive pulmonary disease, unspecified (7) HTN (hypertension) Code(s): I10 - ESSENTIAL (PRIMARY) HYPERTENSION Status: Chronic Qualifiers: Hypertension type: essential hypertension (8) lung adenocarcinoma with metastasis Status: Acute - Plan cont current plan of care XRT TODAY, MOST LIKELY HOME TOMORROW. -: P.O. LEVAQUIN BEGINS TODAY * .
[2017-07-15] MEDS: Dextrose 5 %-0.45 % NaCl 1,000 ML IV SCH ×3 (08:23→18:32)
[2017-07-15] MEDS: Docusate 100 MG CAP PO SCH ×2 (08:24→21:11)
[2017-07-15] MEDS: Enoxaparin Sodium 40 MG/0.4 ML SYRINGE SC SCH (08:24)
[2017-07-15] MEDS: Pantoprazole 40 MG GRANULES PACKET PER TUBE SCH (08:24)
[2017-07-15] MEDS: Metoprolol Tartrate 25 MG TAB PO SCH ×2 (08:26→21:05)
[2017-07-15] MEDS: Lidocaine 5% Patch TD SCH (11:34)
[2017-07-15] MEDS: Famotidine 40 MG/4 ML VIAL SLOW IVP SCH (21:04)
[2017-07-15] MEDS: Melatonin 3 MG TAB PO SCH (21:05)
[2017-07-15] MEDS: Atorvastatin Calcium 40 MG TAB PO SCH (21:05)
[2017-07-16] MEDS: HYDROcodone/Acetaminophen 5/325 mg Tablet PO PRN ×4 (01:06→16:38)
[2017-07-16] MEDS: Lidocaine Patch Removal 1 EACH TOP SCH (01:13)
[2017-07-16] MEDS: Dextrose 5 %-0.45 % NaCl 1,000 ML IV SCH ×2 (03:54→08:34)
[2017-07-16] MEDS: Enoxaparin Sodium 40 MG/0.4 ML SYRINGE SC SCH (08:32)
[2017-07-16] MEDS: Docusate 100 MG CAP PO SCH (08:32)
[2017-07-16] MEDS: Pantoprazole 40 MG GRANULES PACKET PER TUBE SCH (08:32)
[2017-07-16] MEDS: Metoprolol Tartrate 25 MG TAB PO SCH (08:32)
[2017-07-16 09:43] VITALS: BP 169/93; TEMP 98.3
[2017-07-16] MEDS: Lidocaine 5% Patch TD SCH (15:05)
--- NOTE | 2017-07-16 18:26 | DIS ---
DATE OF ADMISSION: 07/08/2017 DATE OF DISCHARGE: 07/16/2017 PRIMARY DISCHARGE DIAGNOSES: 1. Lung cancer with metastatic disease. 2. Influenza. 3. Dysphagia. 4. Hypertension. 5. Acute kidney injury. 6. Elevated troponin. HOSPITAL COURSE: The patient was admitted with the aforementioned problems. The patient was seen an d assessed by the Gastroenterology Service. An EGD was performed, which showed gastric ulcer over th e gastric body, antral gastritis. The patient had a PEG tube and it was indicated by the gastroenter ologist that it was safe to resume tube feeding. The patient was found to have influenza and was jake gnosed with superinfection with bacterial pneumonia. The patient was treated with IV antibiotics inc luding Levaquin. The patient continued to improve during his hospital stay. He was deemed stable fo r discharge from Gastroenterology and Infectious Disease point of view. The patient was also seen an d assessed by the Radiation Oncology Service and had radiation therapy on Tuesday07/15/2017. CONSULTANTS: Gastroenterology. PROCEDURES: Radiation therapy. EGD. Results as noted above. DISCHARGE DISPOSITION: To home with family. DISCHARGE DIET: Tube feedings. DISCHARGE ACTIVITY: As tolerated. DISCHARGE MEDICATIONS: Please see medication rec list. The patient was administered a prescription for 5-day supply of Ferdinand. PHYSICAL EXAMINATION: GENERAL: He was in no acute distress, pleasant, cooperative. HEAD: There was temporal wasting bilaterally. CARDIAC: Regular rate and rhythm. LUNGS: Rhonchi present. ABDOMEN: PEG tube in place. EXTREMITIES: Positive clubbing, no cyanosis, no edema. FOLLOWUP: The patient is to follow up with Dr. Marcus in 4 weeks. The patient is instructed to follo w up with his PCP within 1 week.
== END 2017-07-16 17:05 | disposition home or self-care (01) | DRG 194 ==
LOC: ERS 09:30 → T4-A 12:09
PROVIDERS: ADMIT Internal Medicine; ATTEND Internal Medicine
PROC: 0DH68UZ Insertion of Feeding Device into Stomach, Via Natural or Artificial Opening Endoscopic (ICD-10-PCS; principal; 2017-07-10)
DX: J10.08 Influenza due to other identified influenza virus with other specified pneumonia (principal); N17.9 Acute kidney failure, unspecified; C79.31 Secondary malignant neoplasm of brain; E22.2 Syndrome of inappropriate secretion of antidiuretic hormone; C79.51 Secondary malignant neoplasm of bone; C79.70 Secondary malignant neoplasm of unspecified adrenal gland; D70.9 Neutropenia, unspecified; R13.12 Dysphagia, oropharyngeal phase; I10 Essential (primary) hypertension; K25.7 Chronic gastric ulcer without hemorrhage or perforation; K29.70 Gastritis, unspecified, without bleeding; J15.9 Unspecified bacterial pneumonia; J44.9 Chronic obstructive pulmonary disease, unspecified; F17.210 Nicotine dependence, cigarettes, uncomplicated; F10.10 Alcohol abuse, uncomplicated; I69.391 Dysphagia following cerebral infarction; Z85.118 Personal history of other malignant neoplasm of bronchus and lung; Z79.899 Other long term (current) drug therapy
CPT/HCPCS: 36415; 36416; 71045; 77412; 77417; 80048; 80053; 80202; 82553; 83605; 83690; 83735; 84484; 85025; 85060; 85610; 85730; 87040; 87804; 93005; 94640; 96361; 96365; 96374; 99406; A4216; G8978-GP-CL; G8979-GP-CJ; G8996-GN-CM; G8997-GN-CL; J0692; J1650; J2001; J2270; J2704; J3370; J3480; J7050; J7620

== ENCOUNTER 2017-07-25 12:32 | Emergency (ER) | payer MEDICAID, OTHER, SELFPAY ==
[2017-07-25 13:16] LABS: #Basophils 0.1 thou/uL (0.0-0.2); #Eosinphils 0.1 thou/uL (0.0-0.7); #Lymphocytes 1.1 thou/uL (1.20-3.40); #Monocytes 0.8 thou/uL (0.11-0.59); #Neutrophils 4.2 thou/uL (1.40-6.50); %Basophils 0.8 % (0.0-1.0); %Eosinophils 1.2 % (0.0-10.0); %Lymphocytes 17.4 % (21.0-51.0); %Monocytes 12.7 % (0.0-10.0); %Neutrophils 67.9 % (42.0-75.0); Hemoglobin 9.4 g/dL (14.0-18.0); Mean Corpuscular HGB CONC 32.5 g/dL (32.0-36.0); Mean Corpuscular Hemoglobin 31.6 pg (27.0-31.0); Mean Corpuscular Volume 97.2 fl (80.0-94.0); Mean Platelet Volume 6.8 fL (7.4-10.4); Platelet Count 422 thou/uL (130-400); RBC Distribution Width 15.3 % (11.5-14.5); Red Blood Cell (RBC) Count 2.97 mill/uL (4.70-6.10); White Blood Cell (WBC) Count 6.1 thou/uL (4.8-10.8)
[2017-07-25 13:30] LABS: ALT (SGPT) 60 U/L (8-55); AST (SGOT) 43 U/L (5-34); Albumin 3.5 g/dL (3.5-5.0); Alkaline Phosphatase 152 U/L (40-150); Anion Gap 15 mmol/L (10-20); BUN (Urea Nitrogen) 19 mg/dL (8.4-25.7); Bilirubin, Total 0.4 mg/dL (0.2-1.2); Calc. Creatinine Clearance 0 mL/min (70-130); Calcium 9.5 mg/dL (7.8-10.44); Carbon Dioxide 25 mmol/L (22-29); Chloride 97 mmol/L (98-107); Estimated GFR-MDRD 85; Globulin 4.2 g/dL (2.4-3.5); Glucose 110 mg/dL (70-105); Lipase 8 U/L (8-78); Potassium 5.2 mmol/L (3.5-5.1); Protein, Total 7.7 g/dL (6.0-8.3); Sodium 132 mmol/L (136-145)
--- NOTE | 2017-07-25 14:53 | RAD ---
ACUTE ABDOMINAL SERIES: INDICATIONS: Feeding tube. FINDINGS: There is air space opacity within the right lower lobe, suspicious for pneumonia. This is superimpos ed on mild COPD change. There is a percutaneous gastrostomy tube in the left upper quadrant. The annabel wel gas pattern is not obstructed. There are calcifications seen involving the abdominal and pelvic vasculature. There is calcification of the vasculature deferens. No acute osseous abnormality is ev ident. IMPRESSION: 1. Findings suspicious for right lower lobe pneumonia. 2. Gastrostomy tube. 3. Emphysema. 4. Other chronic findings as above. POS: [facility]
[2017-07-25] MEDS ORDERED: Levofloxacin 500 mg/D5W 100 ml Premix Bag ONE (15:31)
[2017-07-25] MEDS ORDERED: Morphine 4 MG/ML VIAL ONE (15:31)
[2017-07-25 15:54] LABS: Bilirubin Negative (Negative); Blood, Urine Negative (Negative); Clarity CLEAR (Clear); Glucose, Urine (Dipstick) Negative (Negative); Leukocyte Small (Negative); Nitrite Negative (Negative); Protein, Urine (Dipstick) 100 mg/dL (Neg-Trace); Specific Gravity, Urine 1.021 (1.002-1.036)
[2017-07-25 15:55] LABS: Bacteria/HPF None Seen HPF (None Seen); Hyaline Casts/LPF 0-3 HYALINE CAST LPF (0-3 Hyaline); Pathc Cast-AUWi Flag 0.58 (0-2.49); RBC/HPF 0-3 HPF (0-3); Squamous Epithelial 0-3 HPF (0-3)
[2017-07-25 16:11] LABS: Renal Epithelial None Seen HPF (0-3); Transitional Epithelial 0-3 HPF (0-3)
[2017-07-25 17:05] LABS: Lactic Acid 1.3 mmol/L (0.5-2.2)
== END 2017-07-25 18:02 | disposition home or self-care (01) ==
LOC: ERS 12:32
DX: J18.9 Pneumonia, unspecified organism (principal); I10 Essential (primary) hypertension; Z85.118 Personal history of other malignant neoplasm of bronchus and lung; F17.210 Nicotine dependence, cigarettes, uncomplicated
CPT/HCPCS: 36415; 74022; 80053; 81003; 81015; 83605; 83690; 85025; 87040; 96365; 96375; J1956; J2270